=== PATIENT | male | born 1980 | race African-American/Black ===

== ENCOUNTER 2017-11-03 01:46 | Emergency (ER) | payer MEDICAID ==
[~2017-11-03 01:46] MED LIST: AMLODIPINE BESYL5 MG; BACTRIM DS TAB1 EACH PO; BENTYL 20 MG TA20 M1 PO; CARAFATE 11 GM/10 M1 PO; CIPROFLOXACIN500 M1 PO; CYMBALTA20 MG; HYDROXYZINE HCL10 M1; MS CONTIN 60 MG60 M1; NORVASC5 MG PO; ONDANSETRON HCL4 M2 PO; OXYCODON-ACETA1 EAC1 PO; OXYCONTIN10 M1 PO; OXYCONTIN20 M1 PO; PHENADOZ25 MG RC; PRILOSEC 20 MG20 MG PO; PROMS25 WY RECTAL; PROTONIX40 M1 PO; REMERON15 M1; ZANTAC 150MG T150 M1; ZANTAC 150MG T150 MG PO; ZOFRAN ODT4 MG PO; ZOFRAN4 MG PO
== END 2017-11-03 01:55 | disposition left against medical advice (07) ==
LOC: M.ERS 01:46
DX: R11.10 Vomiting, unspecified (principal); I10 Essential (primary) hypertension; F41.9 Anxiety disorder, unspecified; F32.9 Major depressive disorder, single episode, unspecified; Z21 Asymptomatic human immunodeficiency virus [HIV] infection status

== ENCOUNTER 2017-12-10 17:09 | Emergency (ER) | payer MEDICAID ==
[~2017-12-10] VITALS: Ht 182.9 cm; Wt 68.0 kg
[2017-12-10] MEDS ORDERED: PROTONIX40 M1 PO (17:34)
[2017-12-10] MEDS ORDERED: REMERON15 MG PO (17:34)
[2017-12-10] MEDS ORDERED: ANTIVIRAL PO (17:35)
[2017-12-10 18:59] LABS: ABSOLUTE BASOPHILS 0.1 thou/uL (0.0-0.2); ABSOLUTE EOSINOPHILS 0.1 thou/uL (0.0-0.7); ABSOLUTE LYMPHOCYTES 1.4 thou/uL (0.8-5.3); ABSOLUTE MONOCYTES 0.5 thou/uL (0.0-1.2); ABSOLUTE NEUTROPHILS 3.2 thou/uL (1.6-8.1); BASOPHILS 1.6 %; EOSINOPHILS 1.4 %; HEMATOCRIT 36.3 % (42.0-52.0); LYMPHOCYTES 26.4 %; MCH 29.8 pg (26.0-34.0); MCHC 33.1 g/dL (28.0-37.0); MCV 89.9 fL (80.0-100.0); MONOCYTES 10.1 %; MPV 7.3 fl. (7.2-11.1); NUCLEATED RBCS 0 /100WBC; PLATELET COUNT* 151 thou/uL (150-400); POLYS 60.5 %; RBC 4.04 mil/uL (4.50-6.00); RDW-CV 18.1 % (10.5-14.5); WBC 5.3 thou/uL (4.0-11.0)
[2017-12-10 19:07] LABS: CALCIUM 8.8 mg/dL (8.5-10.1); POTASSIUM 3.8 mmol/L (3.5-5.1)
[2017-12-10 19:12] LABS: ALBUMIN 2.8 g/dL (3.4-5.0); TOTAL BILIRUBIN 0.2 mg/dL (<0.1-1.0); TOTAL PROTEIN 6.8 g/dL (6.4-8.2)
[2017-12-10] MEDS ORDERED: ZOFRAN ODT4 MG PO (19:55)
[2017-12-10] MEDS ORDERED: KEFLEX500 M1 PO (19:57)
[2017-12-10 20:20] VITALS: BP 120/89
[2017-12-10] MEDS ORDERED: CIPROFLOXIN HC2.5 M1 OTIC (21:15)
== END 2017-12-10 20:21 | disposition home or self-care (01) ==
LOC: M.ERS 17:09
PROVIDERS: Physician Assistant
DX: K86.1 Other chronic pancreatitis (principal); H10.33 Unspecified acute conjunctivitis, bilateral; F10.20 Alcohol dependence, uncomplicated; K04.7 Periapical abscess without sinus; I10 Essential (primary) hypertension; F32.9 Major depressive disorder, single episode, unspecified; F41.9 Anxiety disorder, unspecified; F17.210 Nicotine dependence, cigarettes, uncomplicated; Z21 Asymptomatic human immunodeficiency virus [HIV] infection status; Z88.8 Allergy status to other drugs, medicaments and biological substances; Z88.6 Allergy status to analgesic agent; Z88.5 Allergy status to narcotic agent; Y90.9 Presence of alcohol in blood, level not specified

== ENCOUNTER 2018-01-15 21:49 | Emergency (ER) | payer MEDICAID ==
[~2018-01-15] VITALS: Ht 182.9 cm; Wt 59.0 kg
[~2018-01-15 21:49] MED LIST changes: +ANTIVIRAL PO; +CIPROFLOXIN HC2.5 M1 OTIC; +KEFLEX500 M1 PO; +REMERON15 MG PO
[2018-01-15] MEDS ORDERED: AMLODIPINE (22:05)
[2018-01-15] MEDS ORDERED: OXYCODONE HCL30 MG (22:05)
[2018-01-15] MEDS ORDERED: STRIBILD TABLE1 EACH PO (22:05)
[2018-01-15] MEDS ORDERED: CREON (22:05)
[2018-01-15 22:14] LABS: URINE BILIRUBIN NEGATIVE (Negative); URINE BLOOD NEGATIVE (Negative); URINE CLARITY CLEAR; URINE COLOR YELLOW; URINE GLUCOSE-RANDOM NEGATIVE (Negative); URINE KETONES NEGATIVE (Negative); URINE LEUKOCYTES-REFLEX TRACE (Negative); URINE NITRITE-REFLEX NEGATIVE (Negative); URINE PROTEIN 1+ (Negative); URINE UROBILINOGEN 0.2 E.U./dl (0.2-1.0)
[2018-01-15 22:23] LABS: MUCUS None Seen strn/LPF (None Seen); SQUAMOUS >10 Many /LPF (0-3)
[2018-01-15 22:24] LABS: CASTS None Seen /LPF (None Seen); CRYSTALS None Seen /LPF (None Seen)
[2018-01-15 22:25] LABS: BACTERIA-REFLEX None Seen /HPF (None Seen); URINE RBC None Seen /HPF (0-2); URINE WBC-REFLEX 0-5 Rare /HPF (0-5)
[2018-01-15 22:26] VITALS: BP 142/99
== END 2018-01-15 22:27 | disposition left against medical advice (07) ==
LOC: M.ERS 21:49
PROVIDERS: Physician Assistant
DX: G89.29 Other chronic pain (principal); R10.13 Epigastric pain; F10.20 Alcohol dependence, uncomplicated; I10 Essential (primary) hypertension; F32.9 Major depressive disorder, single episode, unspecified; F41.9 Anxiety disorder, unspecified; F17.210 Nicotine dependence, cigarettes, uncomplicated; Z88.1 Allergy status to other antibiotic agents; Z88.6 Allergy status to analgesic agent

== ENCOUNTER 2018-02-10 09:32 | Emergency (ER) | payer MEDICAID ==
[~2018-02-10] VITALS: Ht 182.9 cm; Wt 61.2 kg
[~2018-02-10 09:32] MED LIST changes: +AMLODIPINE; +CREON; +OXYCODONE HCL30 MG; +STRIBILD TABLE1 EACH PO
[2018-02-10 11:24] VITALS: BP 122/97
== END 2018-02-10 11:24 | disposition home or self-care (01) ==
LOC: M.ERS 09:32
DX: R10.84 Generalized abdominal pain (principal); I10 Essential (primary) hypertension; F41.9 Anxiety disorder, unspecified; F32.9 Major depressive disorder, single episode, unspecified; F17.210 Nicotine dependence, cigarettes, uncomplicated; Z88.6 Allergy status to analgesic agent; Z88.8 Allergy status to other drugs, medicaments and biological substances

== ENCOUNTER 2018-08-22 04:56 | Inpatient (IN) | payer MEDICAID ==
[2018-08-22] VITALS (23 sets, daily range): BP systolic 75–126; BP diastolic 45–91
[~2018-08-22] VITALS: Ht 182.9 cm; Wt 64.6 kg
[2018-08-22 05:49] LABS: ANION GAP 12 mmol/L (7-16); APTT 21.3 Seconds (25.0-31.3); BUN 8 mg/dL (7-18); CALCIUM 7.6 mg/dL (8.5-10.1); CHLORIDE 104 mmol/L (98-107); CO2 22 mmol/L (21-32); CREATININE 0.8 mg/dL (0.6-1.3); GLUCOSE 94 mg/dL (70-99); POTASSIUM 4.3 mmol/L (3.5-5.1); PROTIME 9.9 Seconds (9.20-11.50); SODIUM 138 mmol/L (136-145)
[2018-08-22 05:54] LABS: ALBUMIN 2.5 g/dL (3.4-5.0); ALKALINE PHOSPHATASE 207 U/L (46-116); SGOT 127 U/L (15-37); SGPT 52 U/L (30-65); TOTAL BILIRUBIN < 0.1 mg/dL (<0.1-1.0); TOTAL PROTEIN 6.9 g/dL (6.4-8.2)
[2018-08-22 05:57] LABS: TROPONIN-I LEVEL 2.92 ng/mL (<0.06)
[2018-08-22 05:58] LABS: MAGNESIUM 2.4 mg/dL (1.8-2.4)
[2018-08-22 06:20] LABS: HYPOCHROMASIA 1+; PLATELET ESTIMATE ADEQUATE; TARGET CELLS Occasional
[2018-08-22 06:21] LABS: ANISOCYTOSIS 1+; POIKILOCYTOSIS 1+
[2018-08-22 06:25] LABS: ABSOLUTE LYMPHOCYTES 1.3 thou/uL (0.8-5.3); ABSOLUTE MONOCYTES 0.2 thou/uL (0.0-1.2); ABSOLUTE NEUTROPHILS 0.9 thou/uL (1.6-8.1); HEMATOCRIT 28.5 % (42.0-52.0); HEMOGLOBIN 9.1 gm/dL (14.0-18.0); MCH 27.1 pg (26.0-34.0); MCV 84.7 fL (80.0-100.0); MPV 8.5 fl. (7.2-11.1); PLATELET COUNT* 224 thou/uL (150-400); RBC 3.37 mil/uL (4.50-6.00); RDW-CV 18.1 % (10.5-14.5); WBC 2.4 thou/uL (4.0-11.0)
[2018-08-22 12:32] LABS: URINE BILIRUBIN NEGATIVE (Negative); URINE BLOOD TRACE (Negative); URINE CLARITY CLEAR; URINE COLOR YELLOW; URINE GLUCOSE-RANDOM NEGATIVE (Negative); URINE KETONES TRACE (Negative); URINE LEUKOCYTES-REFLEX NEGATIVE (Negative); URINE NITRITE-REFLEX NEGATIVE (Negative); URINE PROTEIN 2+ (Negative); URINE SPECIFIC GRAVITY >= 1.030 (1.005-1.030); URINE UROBILINOGEN 0.2 E.U./dl (0.2-1.0)
[2018-08-22 12:40] LABS: AMP/METHAMP Negative (Negative); BARBITURATES Negative (Negative); BENZODIAZEPINES Negative (Negative); COCAINE Negative (Negative); METHADONE Negative (Negative); OPIATES POSITIVE (Negative); PCP POSITIVE (Negative); THC Negative (Negative)
[2018-08-22 12:48] LABS: SQUAMOUS 0-3 Few /LPF (0-3)
[2018-08-22 12:49] LABS: BACTERIA-REFLEX 1-9 Few /HPF (None Seen); CRYSTALS None Seen /LPF (None Seen); HYALINE CASTS 0-3 Few /LPF (None Seen); MUCUS 4-6 Moderate strn/LPF (None Seen); URINE RBC 0-2 Rare /HPF (0-2); URINE WBC-REFLEX 0-5 Rare /HPF (0-5)
--- NOTE | 2018-08-22 13:51 | EKG ---
[place] [address] ELECTROCARDIOGRAM REPORT Name: SHALOM GAR Room: [address] ADM IN .R.#: [id number] Admission: 08/22/18 Attend Phys: Dewayne Velazquez Discharge: Date of : 76 Report #: [id number] THIS REPORT FOR: //name// [facility] ED Test Date: 2018-08-22 Test Time: 05:17:10 Pat Name: SHALOM GAR Department: Room: [facility] Gender: M Garnisher: Lencho DON : 1980 Requested By: Kasia Arvizu Order Number: [id number] MD: David Louise Measurements Intervals [place] Rate: 112 P: 67 FL: 159 QRS: -12 QRSD: 90 T: 104 QT: 323 QTc: 441 Interpretive Statements Sinus tachycardia Borderline low voltage, extremity leads Anteroseptal infarct, old Nonspecific T abnormalities, lateral leads Compared to ECG 09/03/2017 12:46:01 Myocardial infarct finding now present Sinus rhythm no longer present ST (T wave) deviation now present Electronically Signed On 08-22-2018 13:51:43 STEELWORKER by David Louise [email or web address] <ELECTRONICALLY SIGNED> By: David Louise MD, FACC 08/22/18 1351 6 0517 David Louise MD, FACC /EPI
--- NOTE | 2018-08-22 14:27 | NUR ---
SINGLE LUMAN POWER PICC PLACED BY PERCY JUNG RN PER HOSPITAL POLICY. PIV ALSO STARTED. 1315-CALL RECIEVED FROM ICU STATING IV WAS NO LONGER PATENT AND REQUESTION NEW LINE. OVER WIRE EXCHANGE COMPLETED OF SINGLE LUMAN POWER PICC TO DUAL LUMAN POWER PICC PER HOSPITAL POLICY. STAT CHEST X-RAY OBTAINED TO VERIFY TIP [id number]. ON X-RAY TIP NOTED TO STAY IN SUBCLAVIAN AND NOT DROP DOWN INTO SVC. LINE RETRACTED AND ATTEMPT TO READVANCE LINE WITH POWER FLUSH. 2ND CHEST X-RAY SHOWS TIP STILL NOT IN SVC. CALL PLACED TO BAND MAKER AND SPOKE WITH ELAINA. CONNER, STEEL DIE ENGRAVER, IN ICU AND SPOKE WITH HIM. CASE REFERED TO DR. BARRAZA FOR TIP MANIPULATION. [facility] AWARE.
--- NOTE | 2018-08-22 16:58 | NUR ---
PT SLOWLY PROGRESSING TOWARDS GOALS. VSS. AFEBRILE. ALERT AND ORIENTED X4. THROUGHOUT SHIFT PT C/O CONSTANT ABD PAIN. NO BM OR VOMITING THIS SHIFT. PT URINATED WITHOUT DIFFICULTY, NO BLOOD NOTED. PT TOLERATING PO INTAKE. THIS PM PT C/O TREMORS, HEADACHE, AND MILD NAUSEA. STATES HE HAS WITHDRAWN FROM ALCOHOL BEFORE AND HE IS CONCERNED HE IS STARTING TO WITHDRAWL. ATIVAN ADMINISTERED PRN. PT RECEIVED PICC LINE THIS SHIFT DUE TO POOR ACCESS. PT STATES HE HAS HIS HIV MEDICATION AT HOME AND HIS MOTHER WILL BRING IT IF SHE IS ABLE TO COME SEE HIM, FOR NOW HE IS OK TAKING OUR MEDICATION PER PHARMACY. PT DENIES ANY FURTHER QUESTIONS/CONCERNS.
--- NOTE | 2018-08-22 17:45 | NUR ---
RN CALLED REPORT TO LOU BRITTON. PT TX TO 229 WITH PAPER CHART AND BELONGINGS. PT DENIES FURTHER QUESTIONS/CONCERNS.
[2018-08-23] VITALS (27 sets, daily range): BP systolic 83–114; BP diastolic 54–88
--- NOTE | 2018-08-23 06:07 | CON ---
[address] [address] CONSULTATION Name: SHALOM GAR Room: [address] IN M.R.#: [id number] Admission: 08/22/18 Attend Phys: Dewayne Velazquez Discharge: Date of : 76 Report #: [id number] THIS REPORT FOR: //name// CC: RUFINA physician/PCP Consuelo Mckeon DATE OF SERVICE: 08/22/2018 INFECTIOUS DISEASE CONSULTATION: ATTENDING PHYSICIAN: Dr. Mckeon. REASON FOR EVALUATION: HIV positive, admitted with hematemesis associated abdominal pain in the setting of known chronic ethanol abuse. He was seen in the Intensive Care Unit. He is lucid at this point, not hemodynamically unstable, some concern about him being able to afford his medicines. He does state he has been taking his Stribild, perhaps only missing a few days. As far as he is concerned still within the last month, he has undetectable viral load, also a CD count, he believes around 350. It is not clear that he has had significant opportunistic infection as a result of depressed immune system. Evaluation is undergoing in addition to confirming loss of blood via the GI tract. He does have positive troponins and suspected myocardial infarction. Imaging of the abdomen and pelvis showed no evidence of inflammatory masses, ascites, bowel obstruction or other acute process. Urinalysis was generally unremarkable as well. Stool was sent for occult blood. He has now been placed on antimicrobials. ALLERGIES: MORPHINE, ACETAMINOPHEN, IBUPROFEN, FENTANYL, CLONIDINE. CURRENT MEDICINES: Include vitamin, thiamine, hydromorphone, nicotine, pancrelipase, pantoprazole, allopurinol, p.r.n. analgesics and antiemetics. PAST MEDICAL HISTORY: As described above. He is HIV positive, history of pancreatitis, hypertension, depression, anxiety. SOCIAL HISTORY: Smokes a pack and a half a day for the last 15 years. He drinks ethanol on a daily basis with history of delirium tremens. No illicit drug use. FAMILY HISTORY: Noncontributory. REVIEW OF SYSTEMS: As described above, in addition 10-point evaluation was otherwise unremarkable. PHYSICAL EXAMINATION: GENERAL: He appears somewhat chronically ill. He is pleasant, cooperative, [place] [address] CONSULTATION Name: SHALOM GAR Room: [address]#: [id number] Admission: 08/22/18 Attend Phys: Dewayne Velazquez Discharge: Date of : 76 Report #: [id number] undernourished. VITAL SIGNS: Temperature 97, pulse 93, respirations 11, blood pressure 97/66. Weight 142 pounds. SKIN: Warm. He has got several tattoos. He has got plaque-like eruption, most prominent over his back that is not particularly raised. There is no bullous lesions, no ulcers. Really, no drainage. NECK: Supple. No oral lesions. No eye changes. LUNGS: Generally, clear to auscultation. HEART: Regular. Borderline tachycardic. I do not appreciate a murmur. ABDOMEN: Soft, nontender. There are no peritoneal signs. I do not believe there is any organomegaly, specifically hepatic or splenomegaly. EXTREMITIES: Distal lower extremities again dry skin, likely dehydration. GENITOURINARY: Deferred. RECTAL: Deferred. LABORATORY DATA: Initial electrolytes: Sodium 138, potassium 4.3, chloride 104, bicarbonate is 22, anion gap of 12, BUN and creatinine 8 and 0.8, glucose of 94, AST of 127, ALT of 52, albumin of 2.5, total protein 6.9. Estimated GFR 130, ethanol 331. PT 9.9, INR 1.0, lipase of 166. Troponin elevated at 2.92. CBC: White count low at 2.4, H and H 9.1 and 28.5, platelets of 224, actually has a neutrophilia of 900, lymphocyte count is [address] abdomen and pelvis as described above. Lung bases are clear. There is no evidence of pericardial effusion. There is diffuse fatty infiltration of the liver, pancreas consistent with sequelae of chronic pancreatitis, no evidence of acute pancreatitis. ASSESSMENT: 1. Human immunodeficiency virus positive. Sounds as if he has been generally compliant. We will continue to use Stribild at this point. Noted, he may have reasonably a CD4 count and his total lymphocyte count is 1700 which would go against profound T4 lymphocytopenia. Certainly, can exclude opportunistic related infection, although the ethanol seems like the culprit at this point. Secondarily, he has a generalized rash. He states he has utilized spray Tinactin on it before which resolved it. There is a question of an antifungal etiology. We will restart antifungals and go ahead and hold off on any sort of corticosteroid. We will check blood cultures as well as stool studies. <ELECTRONICALLY SIGNED> By: Salvador Chow MD 08/23/18 0607 1432 [id number] Chow MD /nt
[2018-08-23 06:27] LABS: HEMATOCRIT 23.1 % (42.0-52.0); HEMOGLOBIN 7.2 gm/dL (14.0-18.0); MCH 26.8 pg (26.0-34.0); MCHC 31.4 g/dL (28.0-37.0); MCV 85.4 fL (80.0-100.0); MPV 9.1 fl. (7.2-11.1); RBC 2.7 mil/uL (4.50-6.00); RDW-CV 17.8 % (10.5-14.5); WBC 4.3 thou/uL (4.0-11.0)
[2018-08-23 06:47] LABS: ALBUMIN 2.1 g/dL (3.4-5.0); CALCIUM 7.8 mg/dL (8.5-10.1); CREATININE 0.8 mg/dL (0.6-1.3); MAGNESIUM 1.6 mg/dL (1.8-2.4); POTASSIUM 4.2 mmol/L (3.5-5.1); TOTAL BILIRUBIN 0.2 mg/dL (<0.1-1.0); TOTAL PROTEIN 6.2 g/dL (6.4-8.2)
--- NOTE | 2018-08-23 07:00 | NUR ---
AWAKE ALL SHIFT, REQUESTING AND RECEIVED DILAUDID 2MG IVP [id number] FOR C/O ABDOMINAL PAIN, PT VERBALIZED DIALUDID DECREASING PAIN LEVEL USING 1-10 PAIN SCALE FROM 10 TO 6, PT NOTED TO BE IN BED WATCHING TV, NO GAURDING, GRIMACING, OR ABDOMINAL DISTENTION NOTED. EMESIS X1 300CC YELLOW BILE THIS SHIFT, NO BM DUING SHIFT, ATIVAN GIVEN X2 PER REQUEST AND C/O INCREASED ANXIETY, SEEING "SHADOW PEOPLE" AND HEADACHE, ATIVAN EFFECTIVE FOR RELAXATION, NPO SINCE MIDNIGHT FOR EGD TODAY, AFEBRILE, SR/ST TRACING BEAD FLIPPER WITH HR 90'S TO 120'S, USING CALL LIGHT FOR NEEDS AND WANTS, D5NS 100CC/HR INFUSING PER PUMP PER ORDER, CONTINUES ON PROTONIX GTT, DENIES CHEST PAIN OR DISCOMFORT, CALL LIGHT REMAINS IN REACH, BED REMAINS IN LOW AND LOCKED POSITON, HOURLY ROUNDING DONE PER POLICY.
--- NOTE | 2018-08-23 07:31 | 2DMMODE ---
[place] [address] 2 D/M-MODE ECHOCARDIOGRAM Name: SHALOM GAR Room: [address] ADM IN .R.#: [id number] Admission: 08/22/18 Attend Phys: Consuelo Mckeon Discharge: Date of : 76 Date of Service: 08/23/18 0731 Report #: [id number] THIS REPORT FOR: //name// APPROVED REPORT Study performed: 08/22/2018 14:35:46 EXAM: Comprehensive 2D, Doppler, and color-flow Echocardiogram Patient Location: Bedside BSA: 1.81 HR: 92 bpm Other Information Study Quality: Good Indications Non STEMI 2D Dimensions IVSd: 9.22 (7-11mm) LVOT Diam: 24.74 (18-24mm) LVDd: 49.81 mm PWd: 10.00 (7-11mm) Ascending Ao: 35.61 (22-36mm) LVDs: 38.61 (25-40mm) Aortic Root: 35.29 mm Volumes Left Atrial Volume (Systole) LA ESV Index: 22.50 mL/m2 Aortic Valve AoV Peak Case.: 0.74 m/s AO Peak Gr.: 2.21 mmHg LVOT Max P.54 mmHg AO Mean Gr.: 1.39 mmHg LVOT Mean P.79 mmHg LVOT Max V: 0.62 m/s AO V2 VTI: 11.82 cm LVOT Mean V: 0.41 m/s ADRIEL (VTI): 4.40 cm2 LVOT V1 VTI: 10.82 cm Mitral Valve E/A Ratio: 1.25 MV Decel. Time: 234.13 ms MV E Max Case.: 0.63 m/s MV PHT: 67.90 ms MVA (PHT): 3.24 [place]2 [place] [address] 2 D/M-MODE ECHOCARDIOGRAM Name: SHALOM GAR Room: [address] IN [facility]#: [id number] Admission: 08/22/18 Attend Phys: Consuelo Mckeon Discharge: Date of : 76 Date of Service: 08/23/18 0731 Report #: [id number] TDI E/Lateral E': 5.73 E/Medial E': 7.00 Medial E' Case.: 0.09 m/s Lateral E' Case.: 0.11 m/s Pulmonary Valve PV Peak Case.: 0.70 m/s PV Peak Gr.: 1.98 mmHg Tricuspid Valve RAP Estimate: 5.00 mmHg TR Peak Gr.: 18.81 mmHg RVSP: 23.81 mmHg PA Pressure: 23.81 mmHg Left Ventricle The left ventricle is normal size. There is anterior and anteroseptal akinesis. There is normal left ventricular wall thickness. Left ventricular systolic function is moderate to severely decreased. LVEF is 30%. The left ventricular diastolic function is normal. Right Ventricle The right ventricle is normal size. The right ventricular systolic function is normal. Atria The left atrium size is normal. The right atrium size is normal. Aortic Valve The aortic valve is normal in structure. No aortic regurgitation is present. There is no aortic valvular stenosis. Mitral Valve The mitral valve is normal in structure. Mild mitral regurgitation. No evidence of mitral valve stenosis. Tricuspid Valve The tricuspid valve is normal in structure. Mild tricuspid regurgitation. Pulmonic Valve The pulmonary valve is normal in structure. There is no pulmonic valvular regurgitation. Great Vessels The aortic root is normal in size. IVC is [place] [address] 2 D/M-MODE ECHOCARDIOGRAM Name: YURILenchoSHALOM Ilana Room: [address] IN [facility]#: [id number] Admission: 08/22/18 Attend Phys: Consuelo Mckeon Discharge: Date of : 76 Date of Service: 08/23/18 0731 Report #: [id number] collapses >50% with inspiration. Pericardium There is no pericardial effusion. <Conclusion> The left ventricle is normal size. There is normal left ventricular wall thickness. Left ventricular systolic function is moderate to severely decreased. LVEF is 30%. The left ventricular diastolic function is normal. There is anterior and anteroseptal akinesis. Mild mitral regurgitation. Mild tricuspid regurgitation. IVC is normal in size and collapses >50% with inspiration. <ELECTRONICALLY SIGNED> By: Marlo Krishnamurthy MD, FACC 08/23/18730 0 0 Marlo Krishnamurthy MD, FACC /INF
--- NOTE | 2018-08-23 08:22 | CON ---
[address] [address] CONSULTATION Name: SHALOM GAR Room: [address] IN M.R.#: [id number] Admission: 08/22/18 Attend Phys: Dewayne Velazquez Discharge: Date of : 76 Report #: [id number] THIS REPORT FOR: //name// CC: RUFINA physician/PCP Consuelo Mckeon INDICATION: Elevated troponin in the setting of possible upper GI bleed. HISTORY OF PRESENT ILLNESS: The patient is a 37-year-old -Turkish male with history of ETOH abuse and pancreatitis who presented to the hospital with complaints of abdominal pain, nausea and vomiting. He states that he was vomiting blood as well as passing dark stools. He has a history of chronic alcohol use. He complains of some generalized pain focusing mostly on the abdomen. He states he may have had some left arm discomfort. In this setting, he was noted to have an elevated troponin. EKG shows possible recent anteroseptal infarct with persistent ST elevation. He denies any prior history of coronary artery disease. PAST MEDICAL HISTORY: 1. Chronic alcoholism. 2. HIV positive. 3. Tobacco use. 4. History of pancreatitis. 5. Hypertension. 6. Depression. 7. Anxiety. HOME MEDICATIONS: Stribild as directed. ALLERGIES: CLONIDINE, ACETAMINOPHEN, FENTANYL, IBUPROFEN AND MORPHINE. FAMILY HISTORY: Noncontributory. SOCIAL HISTORY: The patient smokes cigarettes and drinks alcohol daily. He denies use of other drugs. REVIEW OF SYSTEMS: Positive for vomiting blood, dark stools, nausea, abdominal pain, otherwise unremarkable. PHYSICAL EXAMINATION: VITAL SIGNS: Blood pressure 113/89, pulse 82. GENERAL: This is a pleasant -Turkish male who does not appear to be in distress. HEENT: Head is normocephalic, atraumatic. Extraocular muscles intact. Mucous membranes are moist. NECK: Shows no jugular venous distension. There are no carotid bruits. CHEST: Reveals [place] [address] CONSULTATION Name: SHALOM GAR Room: [address] IN [facility].#: [id number] Admission: 08/22/18 Attend Phys: Dewayne Velazquez Discharge: Date of : 76 Report #: [id number] CARDIOVASCULAR: Reveals a regular rhythm. I do not appreciate gallop or murmur. ABDOMEN: Reveals diffuse mild tenderness without rebound. Bowel sounds are present. EXTREMITIES: Show no edema. SKIN: Dry. LABORATORY DATA: Reviewed. Sodium 138, potassium 4.3, chloride 104, bicarbonate 22, BUN 8, creatinine 0.8, serum glucose 94, AST 127, lipase 166, total bilirubin less than 0.1, calcium 7.6, magnesium 2.4, alkaline phosphate 207, ALT 52, total protein 6.9, albumin 2.5, EGFR 130. CPK 301. Troponin 2.82. Alcohol level 331. Coags within normal limits. White blood cell count 2.4, hemoglobin 9.1, platelet count 224,000. Hemoccult stool and gastric contents pending. IMPRESSION AND RECOMMENDATIONS: 1. Elevated troponin in the setting of acute illness, likely pancreatitis. The EKG suggests possible recent anterior myocardial infarction. An echocardiogram has been ordered and is pending. At this time, I would hold off on any anticoagulation as there is suspicion of gastrointestinal bleeding, possibly upper gastrointestinal bleeding. Hemoglobin appears stable. Serial troponins and hemoglobins have been ordered. He did receive an aspirin in the Emergency Room. I would not give further aspirin at this time. I would not give metoprolol as he did have a profound episode of hypotension in the Emergency Room as well. He is being gently rehydrated at this time. May need to consider invasive evaluation in the future if this gastrointestinal bleeding issue can be resolved. 2. Pancreatitis per primary physician. 3. ETOH. 4. Hypertension. Blood pressure low normal presently. I would not start any medications at this time. We will follow clinically. <ELECTRONICALLY SIGNED> By: Marlo Krishnamurthy MD, FACC 08/23/1822 1310Marlo Krishnamurthy MD, FACC /nt
--- NOTE | 2018-08-23 17:44 | NUR ---
PT CARE ASSUMED AFTER REPORT. ST ON MONITOR. IVF AND PROTONIX GTT INFUSING. EGD DONE AT BEDSIDE TODAY. 1U PRBC GIVEN FOR HGB 6.7. PT C/O ABD PAIN. REQUESTS PAIN MEDICATION VERY FREQUENTLY BEFORE IT IS DUE. PT TO BE NPO AFTER MIDNIGHT FOR COLONOSCOPY TOMARROW. ALCOHOL WITHDRAWL SCREEN SCORE OF 5. PT TURNS SELF FREQUENTLY IN BED. SLOWLY PROGRESSING TOWARDS GAOLS.
[2018-08-23 18:32] LABS: HEMATOCRIT 23.9 % (42.0-52.0); HEMOGLOBIN 7.6 gm/dL (14.0-18.0)
--- NOTE | 2018-08-23 21:29 | NUR ---
MIRILAX MIXED WITH 36 OUNCES H20 CONSUMED WITHIN 90 MIN, FINISHED AT 2120, DUCOLAX TABS TOATAL DOSE 20MG PO ADMINISTERED, WILL CONTINUE BOWEL PREP ORDERED.
[2018-08-24] VITALS (9 sets, daily range): BP systolic 89–110; BP diastolic 59–82
--- NOTE | 2018-08-24 00:10 | NUR ---
GOLYTELY 20 OUNCES OF TOTAL 36 ONCES CONSUMED, PT REFUSING REST OF ORDERED GOLYTELY AND SECOND DOSE DUCOLAX 20MG PO, STATES FEELING NAUSEATED AND DOES NOT WANT ANYMORE. EDUCATED RATIONALE FOR ORDERED BOWEL PREP, PT CONTINUED TO REFUSE. ZOFRAN 4MG IVP ADMINISTERED PER ORDER FOR NAUSEA.
[2018-08-24 06:05] LABS: ALBUMIN 1.8 g/dL (3.4-5.0); CALCIUM 7.1 mg/dL (8.5-10.1); CREATININE 0.7 mg/dL (0.6-1.3); MAGNESIUM 1.5 mg/dL (1.8-2.4); PREALBUMIN 14.7 mg/dL (18.0-35.7); TOTAL BILIRUBIN 0.4 mg/dL (<0.1-1.0); TOTAL PROTEIN 5.6 g/dL (6.4-8.2)
[2018-08-24 06:19] LABS: HEMOGLOBIN 8.1 gm/dL (14.0-18.0); PLATELET COUNT* 105 thou/uL (150-400)
[2018-08-24 06:21] LABS: MCH 28.3 pg (26.0-34.0); MCHC 32.5 g/dL (28.0-37.0); MPV 8.9 fl. (7.2-11.1); NUCLEATED RBCS 1 /100WBC; RBC 2.88 mil/uL (4.50-6.00); RDW-CV 17.9 % (10.5-14.5)
--- NOTE | 2018-08-24 06:39 | NUR ---
PROGRESSING TOWARDS GOALS, RESTING QUIETLY WITH EYES CLOSED MOST OF NOC, EASILY AROUSABLE TO VERBAL STIMULI, ATIVAN 2MG IVP GIVEN X1 PER REEQUEST AND C/O ANXIETY, ATIVAN EFFECTIVE, CIWA 0 AT THIS TIME, C/O NONPRODUCTIVE COUGH, OXYGEN 2L PER NC, SA02 =>93%, NO BLEEDING NOTED, X1 LIQUID BM THIS SHIFT, COLLECTED ORDERED STOOL AND SENT TO LAB, OCCULT BLOOD NEGATIVE, ZOFRAN 4MG IVP GIVEN X2, ZOFRAN EFFECTIVE FOR NAUSEA, EMESIS YELLOW SPUTUM APROX 25CC NOTED, PT STATES EMESIS CAUSED BY COUGHING, OXYCODONE 5MG PO GIVEN X1 PER REQUEST AND C/O EPIGASTRIC ABDOMINAL PAIN, PER PT OXYCODONE SOMEWHAT HELPFUL, VERBALIZED PAIN DECREASED FROM 10/10 TO 7/10 USING NUMERICAL PAIN SCALE, NPO SINCE MIDNIGHT FOR COLONOSCOPY TODAY, ST TRACING AGENCY DIRECTOR HR ONE-TEENS TO 130'S. BED REMAINS IN LOW AND LOCKED POSITON, USING CALL LIGHT FOR NEEDS.
[2018-08-24 07:57] LABS: ABSOLUTE LYMPHOCYTES 0.8 thou/uL (0.8-5.3); ABSOLUTE MONOCYTES 0.2 thou/uL (0.0-1.2)
[2018-08-24 07:58] LABS: GIANT PLATELETS FEW; LARGE PLATELETS RARE; PLATELET ESTIMATE DECREASED
[2018-08-24 07:59] LABS: ANISOCYTOSIS 1+; HYPOCHROMASIA 3+
[2018-08-24 08:00] LABS: TARGET CELLS Occasional
--- NOTE | 2018-08-24 10:30 | NUR ---
SYSTOLIC BP 89. HR 117. CARDIOLOGY ORDERED FLUID BOLUS. DR FRAZIER NOTIFIED OF BP,HR AND BOLUS ORDERED BY CARDIOLOGY. TELEMETRY STATUS. CARDIOLOGY OKAY WITH PT BEING TELE STATUS WITH BP. PT HAD 1 BM THIS AM. ABOUT 500ML OF LIQUID STOOL. PT NOT CLEAR FOR BOWEL PREP. GI CALLED. RECEIVED ORDER FOR DULCOLAX AND SOAP SUDS ENEMA IF PT NOT CLEAR BY TIME OF COLONOSCOPY. PT C/O OF ABDOMINAL PAIN. PRN PAIN MEDICATION ADMININSTERED PER DEC. PT HAS PRODUCTIVE COUGH.
--- NOTE | 2018-08-24 11:10 | NUR ---
PATIENT ARRIVED TO THE FLOOR AT 1100. PATIENT IN BATHROOM UPON ASSUMING CARE. PATIENT STATES HIS BOWEL MOVEMENT WAS NOT CLEAR, BUT HE FLUSHED BEFORE NURSE COULD VISUALIZE. EDUCATED TO NOT FLUSH NEXT TIME PATIENT GOES TO THE RESTROOM. PATIENT AGREED. PATIENT STATING HE THEW UP MULTIPLE TIMES THIS MORNING, NURSE IN ICU REPORTS NOT SEEING THAT. EDUCATED ON THE IMPORTANCE OF FINISHING HIS BOWEL PREP OR SOAP SUDS ENEMA MAY BE NEEDED. PATIENT AWARE. WANTS LIGHTS IN ROOM OFF AND TO REST.
--- NOTE | 2018-08-24 12:27 | NUR ---
PATIENT LEFT THE FLOOR AT 1215 TO PACU UNTIL PROCEDURE. PACU AWARE PATIENT IS NOT CLEAR YET.
--- NOTE | 2018-08-24 17:46 | NUR ---
SINCE RETURNING FROM EGD, PATIENT MORE APPRORPRIATE. STILL COMPLAINS OF PAIN ALL OVER FROM 7-10 AND NAUSEA, BUT MORE CALM WITH MEDICATION ADMINISTRATION. NO EPISODES OF VOMITING NOTED. PATIENT NOTED NO BLOOD IN STOOL. MAGNESIUM REPLACED PER PROTOCOL. PATIENT TRACING NSR ON FILER AND SANDER. GIOVANNI PICC LINE REMAINS IN PLACE WITH BANANA BAG INFUSING AT THIS TIME. DENIES FURTHER CONCERNS FOR NURSING STAFF AT THIS TIME.
[2018-08-25 00:09] VITALS: BP 100/70
[2018-08-25 02:06] LABS: HEPATITIS B SURFACE AG Negative (Negative)
[2018-08-25 04:56] LABS: HEMOGLOBIN 7.6 gm/dL (14.0-18.0); MCHC 31.8 g/dL (28.0-37.0)
[2018-08-25 04:58] LABS: MCV 88.1 fL (80.0-100.0); MPV 9.7 fl. (7.2-11.1); NUCLEATED RBCS 2 /100WBC; PLATELET COUNT* 82 thou/uL (150-400); RBC 2.72 mil/uL (4.50-6.00); RDW-CV 17.5 % (10.5-14.5); WBC 3.3 thou/uL (4.0-11.0)
[2018-08-25 05:08] LABS: ALBUMIN 1.5 g/dL (3.4-5.0); CALCIUM 6.8 mg/dL (8.5-10.1); CREATININE 0.8 mg/dL (0.6-1.3); POTASSIUM 3.5 mmol/L (3.5-5.1); TOTAL BILIRUBIN 0.3 mg/dL (<0.1-1.0)
[2018-08-25 05:24] VITALS: BP 91/56
--- NOTE | 2018-08-25 06:02 | NUR ---
ASSUMED CARE OF PT AFTER REPORT AT 1930. PT A&OX4. VSS. PHYSICAL ASSESSMENT COMPLETED AND CHARTED. PT ON RA WITH 100% O2 SAT. PT TRACING ST ON TELE. PT PICC LINE TO RIGHT UPPER ARM PATENT & INTACT. PT UP ADLIB TO RESTROOM. PT COMPLAINED OF ABDOMINAL PAIN WITH PAIN SCALE OF 10/10 & ALSO REQUESTED FOR ABDI-DR EDMONDS INFORMED WITH NEW ORDER. CALL LIGHT WITHIN REACH. BED IN LOW POSITION.
--- NOTE | 2018-08-25 08:00 | NUR ---
ASSUMED CARE OF PT AT 0730. PT RESTING IN BED. PT A&0X4, COMPLAINS OF PAIN TO ABDOMEN AND STATES PAIN MEDICATION IS NOT RELIEVING HIS PAIN AND HE WANTS TO TALK TO THE PHYSICIAN REGARDING INCREASE IN PAIN MEDS OR GOING HOME. DR FRAZIER NOTIFIED. PT TRACING ST ON THE MANAGER HUMAN RESOURCES. ON RA SAT UPPER 90'S. DENIES ANY SHORTNESS OF BREATH. PT UP AD RODRIGO IN ROOM. IVF. PT GOAL FOR TODAY IS PAIN MGMT, MONITOR HGB, REMAIN FREE FROM BLOODY STOOLS/EMESIS AND MONITOR CIWAS. AM ASSESSMENT CHARTED. MEDICATIONS PER DEC. PT REPOSITIONS SELF. HOURLY ROUNDING OBSERVED.BED IN LOW POSITION. CALL LIGHT WITHIN REACH. WILL CONTINUE PLAN OF CARE.
[2018-08-25 08:10] VITALS: BP 92/65
[2018-08-25 08:56] LABS: ABSOLUTE LYMPHOCYTES 0.9 thou/uL (0.8-5.3); ABSOLUTE MONOCYTES 0.1 thou/uL (0.0-1.2); ABSOLUTE NEUTROPHILS 2.4 thou/uL (1.6-8.1)
[2018-08-25 08:57] LABS: PLATELET ESTIMATE DECREASED
[2018-08-25 08:58] LABS: HYPOCHROMASIA 3+; MICROCYTES 2+; TARGET CELLS 2+
[2018-08-25 08:59] LABS: TEARDROPS Occasional
[2018-08-25 09:00] LABS: ANISOCYTOSIS 2+
--- NOTE | 2018-08-28 16:10 | PROC ---
[address] [address] PROCEDURE REPORT Name: CONGSHALOM Ilana Room: [address] IN M.R.#: [id number] Admission: 08/22/18 Attend Phys: Dewayne Velazquez Discharge: 08/25/18 Date of : 76 Report #: [id number] THIS REPORT FOR: //name// CC: FAM physician/PCP Marlo Mckeon MD DATE OF SERVICE: 08/24/2018 REFERRING PHYSICIAN: Consuelo Mckeon MD PRIMARY CARE PHYSICIAN: The patient has no primary care provider. PROCEDURE PERFORMED: Colonoscopy with terminal ileoscopy. SEDATION USED: Monitored anesthesia care with propofol. SPECIMEN RETRIEVED: None. INDICATIONS: The patient is a 37-year-old male with underlying coronary artery disease, chronic calcific alcoholic pancreatitis, HIV infection and polysubstance abuse, who underwent upper endoscopy yesterday to evaluate for source of iron deficiency anemia. His upper endoscopy was essentially unrevealing for source of the same. He presents today for colonoscopy to evaluate for source of his iron deficiency anemia. The patient did have some overt hematochezia. He presents today for a colonoscopy. See consultation dictated by Dr. Ng and my EGD report for details. PHYSICAL EXAMINATION: GENERAL: Revealed ill-appearing 37-year-old gentleman who appears much older than stated age. CARDIOPULMONARY: Revealed a regular rate and rhythm. His lungs were clear. ABDOMEN: Soft, diffusely tender. No rebound or guarding noted. LABORATORY TESTS: From today revealed white count of 5.3, hemoglobin ____, AST 136, ALT 52, his albumin is 120. DESCRIPTION OF PROCEDURE: An informed consent was obtained from the patient including the nature, risks, benefits and alternatives described. The patient was placed in the left lateral decubitus position with oximetry, blood pressure and cardiac monitoring. IV sedation was titrated with medication to effect. Anal inspection and digital rectal examination revealed some [place] [address] PROCEDURE REPORT Name: SHALOM GAR Room: [address] IN ..#: [id number] Admission: 08/22/18 Attend Phys: Dewayne Velazquez Discharge: 08/25/18 Date of : 76 Report #: [id number] The Abacastn video colonoscope was then advanced under direct vision to the level of the cecum, which was identified by the ileocecal valve and the appendiceal orifice. The cecum, ascending, transverse, descending and sigmoid colon were then circumferentially inspected in a well-prepped colon. I found no evidence for any colitis, polyps, tumors, cancers, diverticular changes, or any other abnormalities. The patient had some internal and external hemorrhoids, but predominantly mostly external. Prior to pulling the scope, the ileocecal valve was traversed and the terminal ileum was evaluated and found to be normal. The remainder of the colon to the level of the terminal ileum was normal. There was no blood to the colon. Scope was withdrawn. The patient was sent to recovery room in stable condition. IMPRESSION: 1. Moderate internal and external hemorrhoids -- no therapy rendered at this time. 2. Otherwise, normal colonoscopy and terminal ileoscopy. 3. Iron deficiency anemia of uncertain etiology. RECOMMENDATIONS: 1. We will allow the patient go ahead and resume oral intake. 2. We need to begin oral iron supplementation for his iron-deficiency anemia. 3. We need to schedule the patient for small bowel capsule study as an outpatient to evaluate the remainder of his GI tract for source of chronic blood loss. This will be arranged through our office. 4. If he has any recurrent rectal bleeding, he will need to be seen by either general surgeon or colorectal surgeon for possible surgical intervention for the same. 5. Okay to proceed with a cardiovascular workup for his recent non-STEMI. I have discussed these findings with the patient in the recovery area. ADDENDUM: The patient continues to have problems with recurrent nausea and vomiting. I will add a scopolamine patch and write for him to undergo a 4-hour gastric emptying scan on Sunday. <ELECTRONICALLY SIGNED> By: Miguel Angel Villagomez DO 08/28/18 1610 0707 [id number] Angel Villagomez DO /nt
--- NOTE | 2018-08-28 16:10 | PROC ---
[address] [address] PROCEDURE REPORT Name: SHALOM GAR Room: [address] IN .R.#: [id number] Admission: 08/22/18 Attend Phys: Dewayne Velazquez Discharge: 08/25/18 Date of : 76 Report #: [id number] THIS REPORT FOR: //name// CC: FAM physician/PCP Consuelo Mckeon MD DATE OF SERVICE: 08/23/2018 REFERRING PHYSICIAN: Consuelo Mckeon MD PROCEDURE PERFORMED: Esophagogastroduodenoscopy. SEDATION USED: Monitored anesthesia care with propofol. SPECIMEN RETRIEVED: None. INDICATIONS: The patient is a 37-year-old male with history of chronic alcoholic pancreatitis and hepatitis C with polysubstance abuse who was admitted to the hospital with severe anemia with associated hematemesis and hematochezia by his report. He was seen in consultation by our associate, Dr. Ng, and scheduled for today's examination. See his consultation for further details. PHYSICAL EXAMINATION: GENERAL: Revealed ill appearing 37-year-old male who is awake and alert. He appears older than stated age. CARDIOPULMONARY: Revealed a regular rate and rhythm. He was tachycardic. His lungs were clear. ABDOMEN: Soft, diffusely tender. No rebound or guarding noted. LABORATORY TESTS: Revealed a white count of 4.3, hemoglobin 7.2, platelet count 158,000. His MCV is 85.4 and RDW 17.8. His INR is 1.0. Sodium 139, potassium 4.2, chloride 106, bicarbonate is 24, BUN 7, creatinine 0.8. His total bilirubin is 0.2, alkaline phosphatase is 227, AST is 119, ALT is 55. His albumin is only 2.1. Troponins have been elevated as well. His drug screen is positive for opiates and PCP. His alcohol level on admission was 331. His iron saturation is 3% and ferritin is 19, B12 level 765 and folate is 8.3, which is on the low side. C-reactive protein is 40 and his C. diff toxin assay is negative. His CD4 count is 533. He is HIV positive. By comparison, his hemoglobin back in November of this year was 12.0. CT scan of the abdomen performed on 08/22 was reviewed and revealed evidence for chronic calcific alcoholic pancreatitis without evidence for any other issues. He has diffuse fatty infiltration of the liver. [place] [address] PROCEDURE REPORT Name: YURILenchoSHALOM Preciado Room: [address]#: [id number] Admission: 08/22/18 Attend Phys: Dewayne Velazquez Discharge: 08/25/18 Date of : 76 Report #: [id number] DESCRIPTION OF PROCEDURE: After informed consent and once the patient was adequately sedated, Olympus video upper scope was advanced under direct vision into the esophagus, which appeared completely normal. There was no esophagitis, rings, webs, strictures. Stomach was entered, insufflated and examined in its entirety and revealed some mild pyloric channel erythema, but there was no evidence for any ulceration. The stomach appeared to be pale secondary to his anemia. There was no blood noted within the upper GI tract. The pylorus widely patent revealing a normal duodenal bulb. Second portion of the duodenum appeared normal as well. Retroflex examination showed normal appearing cardia and fundus. Scope was withdrawn. The patient was sent to the recovery room in stable condition. IMPRESSION: 1. Mild pyloric channel erythema. 2. Pale appearance to the stomach secondary to his anemia. 3. Otherwise, normal upper endoscopy. RECOMMENDATIONS: 1. Okay at this point in time to discontinue the patient's Protonix drip. 2. We will give the patient bowel preparation and proceed with full colonoscopy tomorrow. We will need to look at his colon. 3. It will be okay for him to begin on any anticoagulants for his suspected coronary artery disease due to chronic iron deficiency anemia with associated hematochezia. I have discussed the plans with the patient as well. He is agreeable to the same. The patient has no primary care provider. <ELECTRONICALLY SIGNED> By: Miguel Angel Villagomez DO 08/28/18 1610 0703 [id number] Angel Villagomez DO /nt
--- NOTE | 2018-09-03 12:30 | CON ---
[address] [address] CONSULTATION Name: SHALOM GAR Room: [address] IN M.R.#: [id number] Admission: 08/22/18 Attend Phys: Dewayne Velazquez Discharge: 08/25/18 Date of : 76 Report #: [id number] THIS REPORT FOR: //name// CC: RUFINA physician/PCP Consuelo Mckeon HISTORY OF PRESENT ILLNESS: This is a 37-year-old male with history of drug abuse, who is presenting with hematochezia and hematemesis. The patient reports he has had these symptoms on and off for the last one month. He reports his last episode of hematemesis was large in volume compared to his previous episodes, which prompted this visit to the hospital. The patient reports epigastric abdominal pain associated with nausea, vomiting and intermittent episodes of bright red blood per rectum. The patient reports it is usually blood-tinged vomitus, but this last time, he noticed some valdemar blood in his emesis. The patient denies any reflux symptoms, difficulty swallowing, diarrhea, fevers or chills. PAST MEDICAL HISTORY: Coronary artery disease, hypertension, drug abuse. PAST SURGICAL HISTORY: No significant surgical history. FAMILY HISTORY: No history of colorectal cancer. SOCIAL HISTORY: The patient does smoke cigarettes every day, consumes alcohol on a regular basis. The patient reports his last recreational drug use was more than 3 months back, but his UDS is positive for opiates and PCP. REVIEW OF SYSTEMS: A comprehensive 10-point review of systems was negative except what is mentioned here. PHYSICAL EXAMINATION: VITAL SIGNS: Temperature 36.0, pulse rate 107, respirations 15, blood pressure 96/58, pulse ox 98-100% on room air. GENERAL: The patient is alert, awake, oriented x 3. HEENT: Pupils are equal, round, reactive to light and accommodation. Mucous membranes are moist. There is no congestion. LUNGS: Clear to auscultation bilaterally. HEART: Rate and rhythm regular, S1, S2 present. EXTREMITIES: Warm, well perfused. There is no edema. NEUROLOGIC: No focal neurological deficit. LABORATORY DATA: Hemoglobin 9.1, hematocrit 28.5, WBC count 2.4, platelet count 224. Sodium 138, potassium 4.3, chloride 104, bicarbonate 22, BUN 8, creatinine 0.8. INR 1. UDS positive for opiates and PCP. Abdomen and pelvis CT demonstrates sequelae of chronic pancreatitis without evidence of acute pancreatitis, [place] [address] CONSULTATION Name: SHALOM GAR Room: [address]#: [id number] Admission: 08/22/18 Attend Phys: Dewayne Velazquez Discharge: 08/25/18 Date of : 76 Report #: [id number] ASSESSMENT AND PLAN: This is a very pleasant 37-year-old male with history of alcohol abuse and drug use, presenting with multiple episodes of nausea and vomiting along with an episode of hematemesis. We would recommend upper GI endoscopy to evaluate source of the upper GI bleeding. Place the patient on Protonix 40 mg b.i.d. Further recommendations will be based on esophagogastroduodenoscopy. <ELECTRONICALLY SIGNED> By: Saeid Ng MD 09/03/18 1230 2300 [id number] Ng MD /nt
== END 2018-08-25 09:40 | disposition left against medical advice (07) | DRG 377 ==
LOC: M.ERS 04:56 → M.TBA-ER 06:28 → M.ICU 06:28 → M.2W 08-24 10:52
PROVIDERS: Internal Medicine; Internal Medicine Gastroenterology; Personal Emergency Response Attendant; Specialist; ADMIT Internal Medicine
PROC: 02HV33Z Insertion of Infusion Device into Superior Vena Cava, Percutaneous Approach (ICD-10-PCS; principal; 2018-08-22)
PROC: 0DJ08ZZ Inspection of Upper Intestinal Tract, Via Natural or Artificial Opening Endoscopic (ICD-10-PCS; 2018-08-23)
PROC: 30233N1 Transfusion of Nonautologous Red Blood Cells into Peripheral Vein, Percutaneous Approach (ICD-10-PCS; 2018-08-23)
PROC: 0DJD8ZZ Inspection of Lower Intestinal Tract, Via Natural or Artificial Opening Endoscopic (ICD-10-PCS; 2018-08-24)
DX: K92.2 Gastrointestinal hemorrhage, unspecified (principal); G92 Toxic encephalopathy; I21.4 Non-ST elevation (NSTEMI) myocardial infarction; K86.1 Other chronic pancreatitis; D62 Acute posthemorrhagic anemia; I10 Essential (primary) hypertension; F32.9 Major depressive disorder, single episode, unspecified; F41.9 Anxiety disorder, unspecified; F17.210 Nicotine dependence, cigarettes, uncomplicated; I25.10 Atherosclerotic heart disease of native coronary artery without angina pectoris; K64.8 Other hemorrhoids; K64.4 Residual hemorrhoidal skin tags; F10.129 Alcohol abuse with intoxication, unspecified; R21 Rash and other nonspecific skin eruption; F19.90 Other psychoactive substance use, unspecified, uncomplicated; E53.8 Deficiency of other specified B group vitamins; K52.9 Noninfective gastroenteritis and colitis, unspecified; Z53.21 Procedure and treatment not carried out due to patient leaving prior to being seen by health care provider; Z88.6 Allergy status to analgesic agent; Z88.8 Allergy status to other drugs, medicaments and biological substances; Z91.19 Patient's noncompliance with other medical treatment and regimen

== ENCOUNTER 2018-08-25 20:15 | Inpatient (IN) | payer MEDICAID ==
[~2018-08-25] VITALS: Ht 182.9 cm; Wt 158.8 kg
--- NOTE | ~2018-08-25 | EKG ---
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
[2018-08-25 20:45] VITALS: BP 84/59
[2018-08-25 21:40] LABS: CALCIUM 7.3 mg/dL (8.5-10.1); CREATININE 0.6 mg/dL (0.6-1.3); POTASSIUM 3.4 mmol/L (3.5-5.1)
[2018-08-25 21:44] LABS: ALBUMIN 1.8 g/dL (3.4-5.0); TOTAL BILIRUBIN 0.2 mg/dL (<0.1-1.0); TOTAL PROTEIN 5.6 g/dL (6.4-8.2)
[2018-08-25 22:06] LABS: RBC 2.91 mil/uL (4.50-6.00); WBC 3.8 thou/uL (4.0-11.0)
--- NOTE | 2018-08-25 22:06 | NUR ---
MULTIPLE ATTEMPTS TO ESTABLISH IV ACCESS UNSUCCESSFULL, DR MORTENSEN ESTABLISHED IV ACCESS NSING SONOGRAM LEFT AC.
[2018-08-25 22:08] LABS: HEMATOCRIT 25.8 % (42.0-52.0); HEMOGLOBIN 8.3 gm/dL (14.0-18.0); MCH 28.6 pg (26.0-34.0); MCHC 32.3 g/dL (28.0-37.0); MCV 88.6 fL (80.0-100.0); MPV 9.5 fl. (7.2-11.1); NUCLEATED RBCS 1 /100WBC; PLATELET COUNT* 84 thou/uL (150-400); RDW-CV 17.8 % (10.5-14.5)
[2018-08-25 23:02] LABS: ABSOLUTE LYMPHOCYTES 1.4 thou/uL (0.8-5.3); ABSOLUTE MONOCYTES 0.1 thou/uL (0.0-1.2); ABSOLUTE NEUTROPHILS 2.3 thou/uL (1.6-8.1); ANISOCYTOSIS 1+; PLATELET ESTIMATE DECREASED
[2018-08-25 23:30] VITALS: BP 117/85
--- NOTE | 2018-08-25 23:44 | NUR ---
PATIENT FREQUENTLY REQUESTING PAIN MEDICATION. DR MORTENSEN ORDERD FENTANYL FOR PATIENT. NOTED FENTANYL WAS LISTED ON PATIENT ALLERGY LIST. PATIENT STATES HE DOES NOT HAVE AN ALLERGY TO FENTANYL AND CAN TAKE IT.
[2018-08-26 00:09] VITALS: BP 117/85
[2018-08-26 00:33] LABS: URINE BILIRUBIN NEGATIVE (Negative); URINE BLOOD NEGATIVE (Negative); URINE CLARITY CLEAR; URINE COLOR YELLOW; URINE GLUCOSE-RANDOM NEGATIVE (Negative); URINE KETONES NEGATIVE (Negative); URINE LEUKOCYTES-REFLEX NEGATIVE (Negative); URINE NITRITE-REFLEX NEGATIVE (Negative); URINE PROTEIN NEGATIVE (Negative); URINE SPECIFIC GRAVITY <= 1.005 (1.005-1.030); URINE UROBILINOGEN 0.2 E.U./dl (0.2-1.0)
[2018-08-26 00:37] LABS: AMP/METHAMP Negative (Negative); BARBITURATES Negative (Negative); BENZODIAZEPINES Negative (Negative); COCAINE Negative (Negative); METHADONE Negative (Negative); OPIATES POSITIVE (Negative); PCP Negative (Negative); THC Negative (Negative)
--- NOTE | 2018-08-26 02:30 | NUR ---
37 Y/O MALE ADMITTED TO TELEMETRYWITH AN ADMITTING DIAGNOSIS OF HYPOTENSION, N/V. PT WAS ADMITTED TO THIS UNIT FOR SEVERAL DAYS AND CHOSE TO LEAVE AMA 11 AM. PT REPORTED THAT HE WENT HOME AND HAD 3 BEERS, PT DENIES EATING ANYTHING AT HOME BUT REPORTS N/V SINCE HE LEFT THE HOSPITAL. PT REPORTS 10 PAIN IN ABDOMEN. PT REQUESTED BROTH AND HAS BEEN ABLE TO KEEP THIS DOWN WELL CL. TRACING ST ON MONITOR. IVF INFUSING ORDERED. NEW ORDER FOR PRN PAIN MEDICATION RECEIVED. PT HAS HX OF HIV, ALCOHOLISM, ANXIETY, DEPRESSION, HTN, PANCREATITIS. CLWR. PT DENIES ANY FURTHER NEEDS AT THIS TIME.
[2018-08-26 04:32] VITALS: BP 113/91
--- NOTE | 2018-08-26 05:51 | NUR ---
PT CONTINUES TO C/O 7-07/24 ABDOMIANL PAIN. PT REPORTS 2 LOOSE STOOLS THIS SHIFT, DENIES BLOOD IN STOOLS OR URINE. IVF INFUSING ORDERED. PT DENIES N/V AND HAS TOLERATED CLD WELL. CLWR.
[2018-08-26 06:09] LABS: ALBUMIN 1.9 g/dL (3.4-5.0); CALCIUM 7.2 mg/dL (8.5-10.1); CREATININE 0.7 mg/dL (0.6-1.3); POTASSIUM 3.5 mmol/L (3.5-5.1); TOTAL BILIRUBIN 0.2 mg/dL (<0.1-1.0); TOTAL PROTEIN 6.2 g/dL (6.4-8.2)
[2018-08-26 08:45] VITALS: BP 103/73
--- NOTE | 2018-08-26 08:45 | NUR ---
ASSUMED PT. CARE AND RECEIVED REPORT AT 0730. PT A/OX4, VSS, MONITOR ON TRACING ST. PT. C/O PAIN 9.5/10 IN ABD. AND ALL OVER. ON RA @ 99%. FULL ASSESSMENT COMPLETED, REFER TO CHARTING. CALL LIGHT IN REACH, WILL CONTINUE WITH PLAN OF CARE.
--- NOTE | 2018-08-26 10:00 | NUR ---
PT. WITH MULTIPLE COMPLAINTS OF NAUSEA/PAIN/ANXIETY. DR. FRAZIER ON FLOOR WITH ORDERS GIVEN FOR IV MEDS FOR SET AMOUNT OF DOSES. RECONSULT FOR CARDIOLOGY DUE TO ELEVATED TROP AT LAST VISIT, GI CLEARED FOR PROCEDURE AT LAST VISIT WELL.
[2018-08-26 11:34] VITALS: BP 100/70
--- NOTE | 2018-08-26 12:36 | NUR ---
DR. FRAZIER NOTIFIED OF UNABLE TO DRAW LABS X3 STICKS. VERBALIZED PT. NEEDS LABS, PUBLIC RELATIONS PROFESSIONAL FELIPA NOTIFIED FOR MIDLINE PLACEMENT POSSIBILITIES. IF UNABLE TO GET LINE DR. FRAZIER WANTS ARTERIAL DRAW FOR LABS.
--- NOTE | 2018-08-26 15:54 | NUR ---
MET WITH PT TO DISCUSS HOME SITUATION/DC PLANNING. PT LIVES WITH HIS MOTHER, 2 SISTERS AND THEIR SONS. HE STATES HE IS INDEPENDENT AND USES NO EQUIPMENT. ADMITTED WITH ELEVATED ETOH LEVEL, DISCUSSED ETOH REHAB OPTIONS, PT STATED 'I'VE BEEN IN [place] EVERYWHERE' HE WAS WILLING TO TAKE INFO AND CONSIDER. PT STATES HE FOLLOWS WITH A DR AT [facility] [place]. WILL FOLLOW
[2018-08-26 16:18] LABS: HEMATOCRIT 23.3 % (42.0-52.0); HEMOGLOBIN 7.4 gm/dL (14.0-18.0); MCH 28.1 pg (26.0-34.0); MCHC 31.5 g/dL (28.0-37.0); MPV 9.3 fl. (7.2-11.1); RBC 2.62 mil/uL (4.50-6.00); RDW-CV 17.9 % (10.5-14.5); WBC 3.7 thou/uL (4.0-11.0)
[2018-08-26 16:58] VITALS: BP 96/66
[2018-08-26 19:00] VITALS: BP 99/72
--- NOTE | 2018-08-26 19:21 | NUR ---
PT. WITH MIDLINE PLACED TODAY, TOLERATED WELL WITH GOOD BLOOD RETURN AT THIS TIME. NAUSEA AND PAIN WELL CONTROLLED WITH IV PAIN MED TODAY. IV ATIVAN GIVEN FOR ANXIETY, PT. DID CALM AFTER GIVING. PT. DID ATTEMPT TO GO DOWN ELEVATOR X 1 TODAY, REMINDED PT. THAT POLICY IS FOR HIM TO STAY ON UNIT WITH MONITOR ON. NICOTINE PATCH OBTAINED FOR PT. COMFORT. HOURLY ROUNDING COMPLETED THROUGH OUT THE DAY FOR PT. SAFETY.
[2018-08-27 00:30] VITALS: BP 112/93
[2018-08-27 02:10] LABS: HEPATITIS B SURFACE AG Negative (Negative)
--- NOTE | 2018-08-27 02:21 | NUR ---
PT ASSESSED AT START OF SHIFT. PT CONTINUES TO C/O CONSTANT ABDOMINAL PAIN REQUESTING PRN PAIN AND ANXIETY MEDICATION FREQUENTLY. PT IRRITABLE, PACING THE FLOOR AT TIMES. ST ON MONITOR. IVF INFUSING ORDERED. PT PUT NPO AFTER MN FOR CARDIOLOGY TESTING IN THE AM. NO NEW CONCERNS AT THIS TIME. CLWR.
[2018-08-27 03:50] VITALS: BP 109/77
[2018-08-27 05:37] LABS: MPV 10.9 fl. (7.2-11.1); NUCLEATED RBCS 1 /100WBC; WBC 4.1 thou/uL (4.0-11.0)
[2018-08-27 05:39] LABS: HEMATOCRIT 22.5 % (42.0-52.0); HEMOGLOBIN 7.2 gm/dL (14.0-18.0); MCHC 32.2 g/dL (28.0-37.0); PLATELET COUNT* 108 thou/uL (150-400)
[2018-08-27 05:49] LABS: CALCIUM 6.9 mg/dL (8.5-10.1); CREATININE 0.9 mg/dL (0.6-1.3)
[2018-08-27 05:51] LABS: POTASSIUM 4.6 mmol/L (3.5-5.1)
--- NOTE | 2018-08-27 06:08 | NUR ---
PT HAS BEEN DEMANDING AND IRRITABLE T/O THIS SHIFT. PT CONTINUES TO DEMAND PAIN MEDICATIONS AND IV ANXIETY MEDICATIONS REGARDLESS OF BEING EDUCATED ON WHEN HE CAN HAVE THEM PER THE PHYSICIAN ORDER. PT REPORTS VERY LITTLE TO NO PAIN RELIEF, C/O ABDOMINAL PAIN. PT REQUESTED ZOFRAN BUT ONLY WANTED IT IF HE COULD HAVE IV ATIVAN AT THAT SAME TIME. PT HAS NOT HAD ANY VOMITING AND HAS BEEN UP ADLIB IN ROOM.
[2018-08-27 06:42] LABS: ABSOLUTE LYMPHOCYTES 1.4 thou/uL (0.8-5.3); ABSOLUTE MONOCYTES 0.3 thou/uL (0.0-1.2); ABSOLUTE NEUTROPHILS 2.4 thou/uL (1.6-8.1); HYPOCHROMASIA 1+; PLATELET ESTIMATE DECREASED
[2018-08-27 06:43] LABS: ANISOCYTOSIS 1+; OVALOCYTES Occasional; POIKILOCYTOSIS 1+; TARGET CELLS Occasional
[2018-08-27 08:00] VITALS: BP 105/76
--- NOTE | 2018-08-27 08:19 | NUR ---
ASSUMED PT. CARE AND RECEIVED REPORT AT 0730. PT. A/OX4, VSS, MONITOR ON TRACING ST. PT. REPORTS PAIN 10/10 IN ABD. PT. ASKING MULTIPLE TIMES ABOUT TIME HE CAN HAVE DILAUDID AGAIN. ALSO STATES CONCERN THAT HIS PENIS IS EDEMATOUS THIS MORNING, PER PT. HE IS VERY CONCERNED ABOUT THE AMOUNT OF SWELLING HE HAS. VISUAL INSPECTION NOTED MINOR SWELLING. FULL ASSESSMENT COMPLETED, REFER TO CHARTING. NPO FOR STRESS TEST TODAY. CALL LIGHT IN REACH, WILL CONTINUE WITH PLAN OF CARE.
--- NOTE | 2018-08-27 09:45 | CON ---
[address] [address] CONSULTATION Name: SHALOM GAR Room: [address] IN .R.#: [id number] Admission: 08/25/18 Attend Phys: Dani Lyle MD Discharge: Date of : 76 Report #: [id number] THIS REPORT FOR: //name// CC: Dani Lyle [facility] physician/PCP DATE OF SERVICE: 08/26/2018 REASON FOR CONSULTATION: Pancytopenia. HISTORY OF PRESENT ILLNESS: A 37-year-old male who has been previously noncompliant, had a polysubstance abuse, alcohol intoxication and chronic pancreatitis, has been evaluated because of pancytopenia. He reviewed his previous records, his white count has been back in 2017 around 3.0. His hemoglobin has been also low; however, he was admitted last month because of GI bleed. His platelet count most recently dropped from 158 to 92. The patient reported that he has been on active treatment for HIV; however, his doctor just moved to [place]. The patient denies any active cancer. The patient has been on treatment for the HAART therapy, which was Stribild; however, I do not have any records to confirm. The patient has been admitted by the hospitalist service and started on pain control. The patient has been seen today. He is feeling fairly well. REVIEW OF SYSTEMS: All systems reviewed, it was negative except abdominal pain. PAST MEDICAL HISTORY: Pancreatitis, hypertension, HIV, depression, and alcoholism. MEDICATIONS: Per admission list. ALLERGIES: MORPHINE, ACETAMINOPHEN, IBUPROFEN, FENTANYL AND CLONIDINE. SOCIAL HISTORY: He is an active smoker, 1 pack per day for more than 20 years. He drinks 6 packs every day also for many years. FAMILY HISTORY: Noncontributory. PHYSICAL EXAMINATION: VITAL SIGNS: Today, temperature 37.6, pulse is 136, respirations 22, blood pressure is 100/70, SpO2 was 100% on room air. GENERAL: The patient was lying in bed. He was not in acute distress. LUNGS: Clear to auscultations bilaterally. HEART: Heart was tachycardic but regular. S1, S2 within normal limits. ABDOMEN: The patient had generalized tenderness. EXTREMITIES: No edema, no cyanosis, [place] [address] CONSULTATION Name: JAZMINESHALOM HINES Room: [address]#: [id number] Admission: 08/25/18 Attend Phys: Dani Lyle MD Discharge: Date of : 76 Report #: [id number] LABORATORY DATA: WBC 3.7, hemoglobin 7.4, platelets 92. Creatinine 0.7, calcium 7.2, AST 161, ALT 69. Vitamin B12 765, folate is 8.3. Hepatitis panel came back negative. IMAGING: From his previous admission on 08/22/2018, he has a diffuse fatty infiltration of the liver. ASSESSMENT AND PLAN: A 37-year-old male who was evaluated because of pancytopenia, which has been chronic, especially his leukopenia. The etiology of his pancytopenia most likely related to his fatty liver and alcohol toxic effect on the bone marrow. In addition to that, he has also folate deficiency. RECOMMENDATIONS: I would like to obtain a flow cytometry on the peripheral blood. Also, a peripheral blood smear, we will check his thyroid level. His folic acid has been already corrected. At this point, no need for transfusion. Agree with the current management. <ELECTRONICALLY SIGNED> By: Lilibeth Rodriguez MD 08/27/18 0945 1634 [id number] Rodriguez MD /nt
[2018-08-27 11:22] VITALS: BP 100/73
--- NOTE | 2018-08-27 12:15 | CARDNUC ---
[place] [address] CARDIAC NUCLEAR IMAGING REPORT Name: SHALOM GAR Room: [address] IN [facility]#: [id number] Admission: 08/25/18 Attend Phys: Dani Lyle, Discharge: Date of : 76 Date of Service: 08/27/18 1215 Report #: [id number] THIS REPORT FOR: //name// APPROVED REPORT Imaging Protocol: Rest Tc-99m/Stress Tc-99m 1 day Study performed: 08/26/2018 12:22:00 Indication: Tachycardia, HX of OR, Hypotension Patient Location: In-Patient Room #: 233 Stress Tech: Naima Yen Stress Nurse: Tila Garza RN NM Tech:FRANK Lane Ht: 6 ft 0 in Wt: 139 lbs BSA: 1.83 m2 BMI: 18.84 Medical History Medical History: HIV/AIDS, , CAD s/p OR, , Current Smoker, Fatigue, HTN, Hypotension, Tachycardia, , Weakness Medications: Carvedilol, Hydralazine Allergies: Morphine, Acetaminophen, Ibuprofen, Fentanyl, Clonidine Cardiac Risk Factors: Current Smoker, FHX of CAD, HTN Previous Cardiac Procedures: Myocardial infarction Pretest Chest Pain Characteristics: No chest pain Exercise History: Indeterminate Physical Disabilities: Generalized weakness/fatigue, HIV/AIDS. Meds Held (24 hrs): Carvedilol Resting Data Rest SPECT myocardial perfusion imaging was performed in supine position 30 minutes following the intravenous injection of 10.0 mCi of Tc-99m Sestamibi. Time of rest injection: 804 Date: 08/27/2018 Time of rest imagin The images were gated to evaluate regional wall motion and calculate left ventricular ejection fraction. Administration Route: IV Administration Site: Left AC Pharmacologic Stress Pharmacologic stress test was performed by injecting Regadenoson 0.4 mg IV push over 10-15 seconds immediately [place] [address] CARDIAC NUCLEAR IMAGING REPORT Name: SHALOM GAR Room: [address]#: [id number] Admission: 08/25/18 Attend Phys: Dani Lyle, Discharge: Date of : 76 Date of Service: 08/27/18 1215 Report #: [id number] injection of 33.7 mCi of Tc-99m Sestamibi. Time of stress injection: 924 Time of stress imagin Administration Route: IV Administration Site: Left AC Gated Stress SPECT was performed 40 minutes after stress injection. The images were gated to evaluate regional wall motion and calculate left ventricular ejection fraction. Stress only was performed in the Supine position. Stress Test Details Stress Test: Pharmacologic stress testing performed using 0.4 mg of regadenoson per 5 mL given IV over 10 seconds. Reason for pharmacologic stress test: physical limitation, Generalized weakness, Tachycardia.. HR Max Heart Rate (APMHR): 181 bpm Resting HR: 111 bpm Target HR (85% APMHR): 153 bpm Max HR Achieved: 129 bpm % of APMHR: 71 Recovery HR: 114 bpm HR response to stress: Normal HR response to stress BP Resting BP: 125/65 mmHg Recovery BP: 104/75 mmHg BP response to stress: Normal blood pressure response to stress. ECG Resting ECG: Sinus Rhythm, NSSTT changes Stress ECG: Sinus Rhythm, NSSTT changes ST Change: None Recovery ECG: Sinus Rhythm Recovery ST Change: None Clinical Reason for Termination: Completed protocol Stress Symptoms: Fatigue, Weakness Exercise duration: 0 min 0 sec Exercise capacity: 1.00 METs Nurse Comments 37 year old male presented with generalized weakness/fatigue and tachycardia with IV fluids infusing. [place] [address] CARDIAC NUCLEAR IMAGING REPORT Name: SHALOM GAR Room: [address]#: [id number] Admission: 08/25/18 Attend Phys: Dani Lyle, Discharge: Date of : 76 Date of Service: 08/27/18 1215 Report #: [id number] treadmill. Patient tolerated sitting Lexiscan well with increase fatigue and weakness which resolved some with caffeine. Patient was escorted by staff via wheelchair to Nuclear Medicine for images. Patient was stable at that time. Stress ECG Conclusion negative ecg portion Study Quality Study: Fair Artifact: Moderate Increased GI uptake Lung Uptake: Normal Study Data At rest, the left ventricular ejection fraction was 35%.. Post stress, the left ventricular ejection was 38%.. SSS: 2 SRS: 0 SDS: 2 TID = 0.93. Perfusion Review of SPECT images reveal a moderate intensity ,moderate sized perfusion defect of the inferseptum, which could partially be related to extracardiac gut uptake. There is also a moderate sized ,moderate intensity anterior defect . There is reduced LV function. Images were reviewed using Stray Boots. Wall Motion global LV dysfunction Nuclear Conclusion ECG Findings: negative for ischemia Clinical Findings: negative for ischemia Nuclear Findings: positive for ischemia Exercise Capacity: not assessed Left Ventricular Function: abnormal Risk Study: high Findings compatible with ischemic cardiomyopathy .There is an inferior defect which could be related to artifact, but the anterior defect , in particular is concerning for myocardial ischemia. [place] [address] CARDIAC NUCLEAR IMAGING REPORT Name: SHALOM GAR Room: [address] IN .#: [id number] Admission: 08/25/18 Attend Phys: Dani Lyle, Discharge: Date of : 76 Date of Service: 08/27/18 1215 Report #: [id number] <Conclusion> negative ecg portion <ELECTRONICALLY SIGNED> By: Arturo Guzmán MD, FACC 08/27/181214 14 14 Arturo Guzmán MD, FACC /INF
[2018-08-27 20:00] VITALS: BP 101/75
[2018-08-28] VITALS: BP 101/71
[2018-08-28 04:00] VITALS: BP 101/72
--- NOTE | 2018-08-28 05:19 | NUR ---
ASSUMED CARE OF PT AFTER REPORT AT 1930. PT A&OX4. VSS. PHYSICAL ASSESSMENT COMPLETED AND CHARTED. PT ON RA WITH 96% O2 SAT. PT TRACING SR/ST ON TELE. PT UP ADLIB TO RESTROOM. PT COMPLAINED OF ABDOMINAL AND PENILE PAIN WITH PAIN SCALE OF 10/10-PAIN MEDS GIVEN PER MAR WITH PARTIAL RELIEF. PT MIDLINE TO LEFT UPPER ARM AND PERIPHERAL LINE TO RIGHT HAND DISLODGED. DR BEAR INFORMED WITH ORDER TO INSERT PICC LINE THIS AM. HOURLY ROUNDING OBSERVED. HS REST & SAFETY GOALS ACHIEVED. CALL LIGHT WITHIN REACH. BED IN LOW POSITION.
[2018-08-28 08:50] VITALS: BP 100/68
--- NOTE | 2018-08-28 11:02 | NUR ---
RECEIVED CALL FROM MANDI/HELEN LINARES. SHE STATED THAT PT HAS A [employer] AND TEAM THAT FOLLOWS HIM AND WOULD LIKE DC INFO FAXED TO THEM. FAXED DC SUMMARY FROM 08/15 TO HER. ALSO PLACED CALL TO PT'S [employer] OFFICER/JOELLE DAVIS, HAD TO LEAVE VMAIL. HELEN LINARES/MANDI [phone] FAX [phone] JOELLE DAVIS [phone]
[2018-08-28 12:00] VITALS: BP 104/78
[2018-08-28 15:38] VITALS: BP 94/69
--- NOTE | 2018-08-28 16:37 | NUR ---
RECEIVED REPORT FROM RAJWINDER AND ASSUMED CARE OF PT AT 0730. PT IS ALERT AND ORIENTED X 4 AND IRRITABLE. 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 VSS, BP RUNNING LOW IN 100'S/60-70'S. PT REPORTS ABDOMEN IS TENDER, HOWEVER PAIN IS WELL MANAGED WITH PO AND IV PAIN MEDICATIONS. LAST BM TODAY. PT IS ON HEART HEALTHY DIET BUT WILL BE NPO AFTER MIDNIGHT FOR CARDIAC CATH TOMORROW. CONSENT ON CHART BUT NOT SIGNED. NEW PICC LINE SINGLE LUMEN INSERTED TODAY IN LEFT UPPER ARM BY PICC NURSE. PICC CLEAN DRY AND INTACT. PT IS UP AD RODRIGO IN THE ROOM. PT ROOM SMELLS OF CIGARETTE SMOKE AND SECURITY NOTIFIED AN EMPTY CIGARETTE PACKET FOUND. PT EDUCATED ON THE IMPORTANCE OF NOT SMOKING INSIDE HOSPITAL. PT STATES I KNOW. PT REFUSED MULTIPLE TIMES TO SHOWER. HOURLY ROUNDING PERFORMED ON PT FOR PT SAFETY. PT INFORMED OF PLAN OF CARE. PT VERBALIZE UNDERSTANDING. CALL LIGHT WITHIN REACH. NURSE WILL CONTINUE TO MONITOR FOR DURATION OF SHIFT.
[2018-08-28 16:45] LABS: HEMOGLOBIN 7.7 gm/dL (14.0-18.0); MCH 27.7 pg (26.0-34.0); MCHC 31.3 g/dL (28.0-37.0); MCV 88.5 fL (80.0-100.0); WBC 4.2 thou/uL (4.0-11.0)
[2018-08-28 16:47] LABS: HEMATOCRIT 24.5 % (42.0-52.0); MPV 10.1 fl. (7.2-11.1); NUCLEATED RBCS 3 /100WBC; PLATELET COUNT* 118 thou/uL (150-400); RBC 2.76 mil/uL (4.50-6.00); RDW-CV 18.5 % (10.5-14.5)
[2018-08-28 16:55] LABS: ALBUMIN 1.7 g/dL (3.4-5.0); CALCIUM 7.4 mg/dL (8.5-10.1); CREATININE 1.2 mg/dL (0.6-1.3); POTASSIUM 4.5 mmol/L (3.5-5.1); TOTAL BILIRUBIN 0.6 mg/dL (<0.1-1.0); TOTAL PROTEIN 5.2 g/dL (6.4-8.2)
[2018-08-28 17:28] LABS: ABSOLUTE LYMPHOCYTES 1.8 thou/uL (0.8-5.3); ABSOLUTE MONOCYTES 0.3 thou/uL (0.0-1.2); ABSOLUTE NEUTROPHILS 2.1 thou/uL (1.6-8.1); PLATELET ESTIMATE ADEQUATE
[2018-08-28 17:29] LABS: ANISOCYTOSIS 1+; POLYCHROMASIA 3+; TARGET CELLS 3+
[2018-08-28 20:00] VITALS: BP 102/75
[2018-08-29] VITALS (17 sets, daily range): BP systolic 95–128; BP diastolic 58–95
[2018-08-29 03:39] LABS: ABSOLUTE BASOPHILS 0.1 thou/uL (0.0-0.2); ABSOLUTE MONOCYTES 0.3 thou/uL (0.0-1.2); HEMOGLOBIN 7.1 gm/dL (14.0-18.0); WBC 3.9 thou/uL (4.0-11.0)
[2018-08-29 03:41] LABS: ABSOLUTE LYMPHOCYTES 1.8 thou/uL (0.8-5.3); ABSOLUTE NEUTROPHILS 1.7 thou/uL (1.6-8.1); BASOPHILS 1.6 %; EOSINOPHILS 0.9 %; HEMATOCRIT 22.6 % (42.0-52.0); LYMPHOCYTES 46.7 %; MCH 27.7 pg (26.0-34.0); MCHC 31.6 g/dL (28.0-37.0); MCV 87.8 fL (80.0-100.0); MONOCYTES 6.9 %; NUCLEATED RBCS 2 /100WBC; PLATELET COUNT* 108 thou/uL (150-400); POLYS 43.9 %; RBC 2.57 mil/uL (4.50-6.00); RDW-CV 18.5 % (10.5-14.5)
[2018-08-29 03:50] LABS: ALBUMIN 1.6 g/dL (3.4-5.0); CALCIUM 7.2 mg/dL (8.5-10.1); CREATININE 1.1 mg/dL (0.6-1.3); POTASSIUM 4.4 mmol/L (3.5-5.1); TOTAL BILIRUBIN 0.3 mg/dL (<0.1-1.0)
--- NOTE | 2018-08-29 04:54 | NUR ---
ASSUMED CARE OF PT AFTER REPORT AT 1930. PT A&OX4. VSS. PHYSICAL ASSESSMENT COMPLETED AND CHARTED. PT ON RA WITH 94% O2 SAT. PT TRACING SR ON TELE. PT UP ADLIB TO RESTROOM. PT WITH PICC LINE TO LEFT UPPER ARM PATENT AND INTACT. PT COMPLAINED OF CONSTANT ABDOMINAL AND PENILE PAIN WITH PAIN SCALE OF 9/10-PAIN MEDS GIVEN PER MAR WITH NO RELIEF. INSTRUCTED ON NPO POST MIDNIGHT FOR CARDIAC CATH TODAY. COMMUNICATES UNDERSTANDING. HOURLY ROUNDING OBSERVED. CALL LIGHT WITHIN REACH. BED IN LOW POSITION.
[2018-08-29 11:05] LABS: APTT 29.2 Seconds (25.0-31.3); INR 1.3; PROTIME 12.9 Seconds (9.20-11.50)
--- NOTE | 2018-08-29 17:04 | CARD ---
[address] [address] CARDIAC CATH REPORT Name: SHALOM GAR Room: [address] IN [facility]#: [id number] Admission: 08/25/18 Attend Phys: Dani Lyle MD Discharge: Date of : 76 Report #: [id number] THIS REPORT FOR: //name// APPROVED REPORT Study performed: 08/29/2018 12:03:11 Patient Details Patient Status: In-Patient Room #: 228 The patient is a 37 year-old Event Personnel Marlo Krishnamurthy Promotion Specialist, Analia Seay RN Cosmetic Account Coordinator, Alicia King RN Cosmetic Account Coordinator, Lito Winn (R) Monitor, Valerie Cochran ACOUSTICAL TILE DRILL PRESS OPERATOR Scrub Procedures Performed Left Heart Cath w/or w/o Coronaries Procedure Narrative A Slender Glidesheath sheath was inserted into the right radial artery. Coronary angiography was performed using coronary diagnostic catheters. The right coronary system was accessed and visualized with a Diagnostic Tig 4 catheter. The left coronary system was accessed and visualized with a Diagnostic Tig 4 catheter. The left ventricle was accessed and visualized with a Diagnostic Angled Pigtail catheter. Left ventricular/Aortic Valve gradient assessed via catheter pullback. Closure device was deployed with a Fr Vasc-Band Reg 24cm. The patient tolerated the procedure well and there were no complications associated with the procedure. Intraoperative Conscious Sedation Sedation start time: 13:20 Case end Time: 13:34 Versed 1 mg Fluoro Time: 2.2 minutes Dose: DAP 69445 cGycm2 291 mGy Contrast Type and Amount: Omnipaque 60 ml Coronary Angiography The patient's coronary anatomy is right dominant. Diagnostic [place] [address] CARDIAC CATH REPORT Name: YURILenchoSHALOM Ilana Room: [address] IN [facility]#: [id number] Admission: 08/25/18 Attend Phys: Dani Lyle MD Discharge: Date of : 76 Report #: [id number] LAD Normal in the proximal mid and distal portion. Diagonal 1 Large branched and normal. Circumflex Normal in the proximal mid and distal portion. OM1 Small in caliber and normal. OM2 Large branched and normal. Right Coronary Normal on the proximal mid and distal portion. R PDA Normal. RPLV Normal. Left Ventriculography The left ventricle is mildly dilated in size with decreased contractility. The left ventricular ejection fraction is estimated to be 20-25%. There is severe global hypokinesis. Hemodynamics The aortic pressure is 85/64 mmHg with a mean of 71 mmHg. The left ventricular pressure is 84/6 mmHg with a mean of mmHg. The left ventricular end diastolic pressure is 11 mmHg. Conclusion 1. Normal coronary arteries. 2. Severe global left ventricular systolic dysfunction. 3. Normal left ventricular end-diastolic pressure. Recommendations Continue medical management and heart failure management. <ELECTRONICALLY SIGNED> By: Marlo Krishnamurthy MD, FACC 08/29/181703 03 03Micdelonte Krishnamurthy MD, FACC /INF
--- NOTE | 2018-08-29 18:28 | NUR ---
RECEIVED REPORT FROM RAJWINDER AND ASSUMED CARE OF PT AT 0730. PT ALERT AND ORIENTED X 4. ASSESSMENT COMPLETED CHARTED. VSS TRACING NORMAL SINUS RHYTHM. PT LUNGS SOUNDS COURSE WITH EXPIRATORY WHEEZE. PICC LINE LEFT UPPER ARM PATENT AND SALINE LOCKED. PT NPO STATUS FOR CATH PROCEDURE. CATH COMPLETED IN RIGHT RADIAL. POST CATH VITAL SIGNS COMPLETED. CATH SITE CLEAN DRY AND INTACT. LIMB ALERTS PLACED ON BILATERAL UPPER EXTREMITIES. PT UP AD RODRIGO IN ROOM. CHEST XRAY COMPLETED. PT STARTED ON IV ANTIBIOTICS. PAIN MANAGED WELL WITH PO MEDICATIONS. HOURLY ROUNDING COMPLETED FOR PT PT SAFETY. CALL LIGHT WITHIN REACH. WILL CONTINUE TO MONITOR FOR DURATIONS OF SHIFT.
[2018-08-30] VITALS (7 sets, daily range): BP systolic 114–134; BP diastolic 70–86
[2018-08-30 05:09] LABS: ABSOLUTE EOSINOPHILS 0.1 thou/uL (0.0-0.7); ABSOLUTE LYMPHOCYTES 1.1 thou/uL (0.8-5.3); ABSOLUTE MONOCYTES 0.4 thou/uL (0.0-1.2); ABSOLUTE NEUTROPHILS 2.2 thou/uL (1.6-8.1); BASOPHILS 0.9 %; HEMATOCRIT 22.8 % (42.0-52.0); HEMOGLOBIN 7.3 gm/dL (14.0-18.0); LYMPHOCYTES 29.4 %; MCH 28.3 pg (26.0-34.0); MCV 88.4 fL (80.0-100.0); MPV 10.7 fl. (7.2-11.1); NUCLEATED RBCS 1 /100WBC; PLATELET COUNT* 119 thou/uL (150-400); POLYS 56.7 %; RBC 2.58 mil/uL (4.50-6.00); WBC 3.9 thou/uL (4.0-11.0)
[2018-08-30 05:29] LABS: ALBUMIN 1.5 g/dL (3.4-5.0); CALCIUM 7.2 mg/dL (8.5-10.1); CREATININE 0.9 mg/dL (0.6-1.3); POTASSIUM 3.9 mmol/L (3.5-5.1); TOTAL BILIRUBIN 0.2 mg/dL (<0.1-1.0); TOTAL PROTEIN 4.9 g/dL (6.4-8.2)
[2018-08-30 05:39] LABS: PREALBUMIN 8.7 mg/dL (18.0-35.7)
--- NOTE | 2018-08-30 05:53 | NUR ---
ASSUMED PT CARE AT 1930, PT IS A&OX4, PT IS TRACING NSR ON THE MONITOR,ON RA. PT C/O PAIN PRN PAIN MEDICATIONS GIVEN PER DEC. PT IS POST CATH TO RIGHT RADIAL. CATH SITE IS CDI. DRESSING PLACED BY THIS RN. VERBAL EDUCATION GIVEN PER LIMB RESTRICITIONS. PT IS UP AD RODRIGO IN HIS ROOM. APPEARS TO BE STABLE ON HIS FEET. BED IN LOW POSITION, CALL LIGHT IN REACH, HOURLY ROUNDING COMPLETED FOR PT SAFETY.
--- NOTE | 2018-08-30 07:15 | NUR ---
RECIEVED REPORT. ASSUMED CARE OF PT AT 0730. VSS. CARDIAC MONITORING IN PLACE SR. AM ASSESSMENT AND VITALS COMPLETED CHARTED. PT ALERT AND ORIENTED. PT ON RA WITH O2 SAT AT 100% PT DOES REPORT FEELING CONGESTED AND SOA AT TIMES. NOTED WHEEZING THROUGHOUT LUNGS. PT DENEIS PAIN THIS AM. NOTED LIMB ALERTS ON BUE. DRESSING TO RIGHT RADIAL C/D/I. PICC LINE IN PLACE SL. PT IS UP AD RODRIGO IN ROOM. PT INFORMED OF PLAN OF CARE. NOTED MED CHANGES PER CARDIOLOGY. CALL LIGHT IS WITHIN REACH. WILL CONTINUE TO MONITOR FOR DURAIOTN OF SHIFT.
--- NOTE | 2018-08-30 11:11 | NUR ---
CONTINUE TO FOLLOW, MET WITH PT. HE DENIES DC NEEDS, ANTICPATE DC TOMORROW. PT AWARE. PLANS TO RETURN HOME WITH HIS MOTHER. DIETITIAN TO SEE, MESSAGE LEFT FOR MELIA. DC INFO WILL NEED TO BE CALLED AND FAXED TO [facility], PLEASE SEE PREVIOUS CM NOTE FOR NUMBERS. NO OTHER DC NEEDS ID'D
--- NOTE | 2018-08-30 18:00 | NUR ---
RECEIVED REPORT AT ASSUMED CARE AT 1600. PT HAS REMAINED STABLE REMAINDER OF SHIFT. TREATED FOR PAIN X 1 WITH OXY, TOLERATED WELL. NO FURTHER COMPLAINTS AT THIS TIME. PT. WITH DECENT APPETITE AT DINNER. CALL LIGHT IN REACH, WILL CONTINUE WITH PLAN OF CARE.
[2018-08-31] VITALS: BP 129/82
--- NOTE | 2018-08-31 03:33 | NUR ---
ASSUMED PT CARE AT 1930. ASSESSMENT COMPLETED CHARTED. ABLE TO MAKE NEEDS KNOWN. C/O ACHES AND PAINS EVERYWHERE. GAVE PRN PAIN MEDS REQUESTED PER P.O. UP AD RODRIGO. PT RESTING IN BED AT THIS TIME. WILL CONTINUE TO MONITOR.
[2018-08-31 04:00] VITALS: BP 133/86
[2018-08-31 04:46] LABS: HEMATOCRIT 22.3 % (42.0-52.0); HEMOGLOBIN 7.1 gm/dL (14.0-18.0); MCH 28.3 pg (26.0-34.0); MCHC 31.9 g/dL (28.0-37.0); MCV 88.8 fL (80.0-100.0); MPV 10.5 fl. (7.2-11.1); RBC 2.52 mil/uL (4.50-6.00); RDW-CV 19.5 % (10.5-14.5); WBC 4.5 thou/uL (4.0-11.0)
[2018-08-31 05:00] LABS: CALCIUM 7.2 mg/dL (8.5-10.1); CREATININE 0.8 mg/dL (0.6-1.3); MAGNESIUM 1.7 mg/dL (1.8-2.4); POTASSIUM 3.7 mmol/L (3.5-5.1)
[2018-08-31 08:00] VITALS: BP 143/89
[2018-08-31] MEDS ORDERED: COREG6.25 MG PO (11:46)
[2018-08-31] MEDS ORDERED: OXYCODONE HCL 55 MG PO (11:46)
[2018-08-31] MEDS ORDERED: FOLIC ACID1 MG PO (11:46)
[2018-08-31] MEDS ORDERED: VITAMIN B-1100 M1 PO (11:46)
[2018-08-31] MEDS ORDERED: SPIRONOLACTONE25 MG PO (11:46)
[2018-08-31] MEDS ORDERED: PANCRELIPASE PO (11:46)
[2018-08-31] MEDS ORDERED: DIFLUCAN200 MG PO (11:46)
[2018-08-31] MEDS ORDERED: COZAAR 50 MG TA50 M1 PO (11:46)
[2018-08-31 11:53] VITALS: BP 137/91
[2018-08-31 13:00] VITALS: BP 132/78
--- NOTE | 2018-08-31 13:44 | NUR ---
PT ALERT, ORIENTED AND ALL VSS ON ROOM AIR. C/O ABD PAIN- MEDICATED PER EMAR. EDUCATED ON SAFETY AND PLAN OF CARE. PLEASE SEE ASSESSMENT FOR ADDITIONAL INFORMATION. PICC DC PRIOR TO DC HOME IN STABLE IN WITH ALL BELONGINGS. PT DC HOME IN STABLE CONDITION AT APPROX 1345
--- NOTE | 2018-09-02 08:44 | NUR ---
CALLED AND FAXED PT'S DC INFO TO HELEN [facility]ES/MANDI PER REQUEST
== END 2018-08-31 13:45 | disposition home or self-care (01) | DRG 280 ==
LOC: M.ERS 20:15 → M.2W 22:42 → M.TBA-ER 22:42 → M.2W 23:43
PROVIDERS: Emergency Medicine; Internal Medicine; Internal Medicine Cardiovascular Disease; Podiatrist Foot Surgery; ADMIT Internal Medicine
PROC: 02HV33Z Insertion of Infusion Device into Superior Vena Cava, Percutaneous Approach (ICD-10-PCS; principal; 2018-08-28)
PROC: B2111ZZ Fluoroscopy of Multiple Coronary Arteries using Low Osmolar Contrast (ICD-10-PCS; 2018-08-29)
PROC: 4A023N7 Measurement of Cardiac Sampling and Pressure, Left Heart, Percutaneous Approach (ICD-10-PCS; 2018-08-29)
PROC: B2151ZZ Fluoroscopy of Left Heart using Low Osmolar Contrast (ICD-10-PCS; 2018-08-29)
DX: I21.4 Non-ST elevation (NSTEMI) myocardial infarction (principal); G92 Toxic encephalopathy; I50.23 Acute on chronic systolic (congestive) heart failure; E43 Unspecified severe protein-calorie malnutrition; D61.818 Other pancytopenia; D62 Acute posthemorrhagic anemia; F10.221 Alcohol dependence with intoxication delirium; K86.1 Other chronic pancreatitis; I42.9 Cardiomyopathy, unspecified; Z68.42 Body mass index [BMI] 45.0-49.9, adult; F32.9 Major depressive disorder, single episode, unspecified; F41.9 Anxiety disorder, unspecified; E86.0 Dehydration; I95.9 Hypotension, unspecified; K64.4 Residual hemorrhoidal skin tags; F17.210 Nicotine dependence, cigarettes, uncomplicated; Z21 Asymptomatic human immunodeficiency virus [HIV] infection status; G89.29 Other chronic pain; K64.8 Other hemorrhoids; K70.10 Alcoholic hepatitis without ascites; I11.0 Hypertensive heart disease with heart failure; Z71.6 Tobacco abuse counseling; Z71.41 Alcohol abuse counseling and surveillance of alcoholic; Z91.14 Patient's other noncompliance with medication regimen; Z79.899 Other long term (current) drug therapy; Z88.5 Allergy status to narcotic agent; Z88.8 Allergy status to other drugs, medicaments and biological substances

== ENCOUNTER 2018-09-24 22:19 | Emergency (ER) | payer MEDICAID ==
[~2018-09-24] VITALS: Ht 182.9 cm; Wt 61.2 kg
[~2018-09-24 22:19] MED LIST changes: +COREG6.25 MG PO; +COZAAR 50 MG TA50 M1 PO; +DIFLUCAN200 MG PO; +FOLIC ACID1 MG PO; +OXYCODONE HCL 55 MG PO; +PANCRELIPASE PO; +SPIRONOLACTONE25 MG PO; +VITAMIN B-1100 M1 PO
[2018-09-24 23:46] LABS: AMP/METHAMP Negative (Negative); BARBITURATES Negative (Negative); BENZODIAZEPINES Negative (Negative); COCAINE Negative (Negative); METHADONE Negative (Negative); OPIATES Negative (Negative); PCP Negative (Negative); THC Negative (Negative)
[2018-09-24 23:47] LABS: CREATININE 0.7 mg/dL (0.6-1.3); POTASSIUM 3.7 mmol/L (3.5-5.1)
[2018-09-24 23:52] LABS: ALBUMIN 2.3 g/dL (3.4-5.0); TOTAL BILIRUBIN 0.2 mg/dL (<0.1-1.0)
[2018-09-24 23:54] LABS: HEMOGLOBIN 10.2 gm/dL (14.0-18.0); NUCLEATED RBCS 0 /100WBC
[2018-09-24 23:56] LABS: HEMATOCRIT 31.6 % (42.0-52.0); MCH 27.2 pg (26.0-34.0); MCHC 32.3 g/dL (28.0-37.0); MCV 84.1 fL (80.0-100.0); MPV 8.7 fl. (7.2-11.1); PLATELET COUNT* 135 thou/uL (150-400); RBC 3.76 mil/uL (4.50-6.00); RDW-CV 21.7 % (10.5-14.5); WBC 3.2 thou/uL (4.0-11.0)
[2018-09-25 00:12] LABS: URINE BILIRUBIN NEGATIVE (Negative); URINE BLOOD NEGATIVE (Negative); URINE CLARITY CLEAR; URINE COLOR YELLOW; URINE GLUCOSE-RANDOM NEGATIVE (Negative); URINE KETONES NEGATIVE (Negative); URINE LEUKOCYTES-REFLEX NEGATIVE (Negative); URINE NITRITE-REFLEX NEGATIVE (Negative); URINE PROTEIN 2+ (Negative); URINE UROBILINOGEN 0.2 E.U./dl (0.2-1.0)
[2018-09-25 00:39] LABS: SQUAMOUS 0-3 Few /LPF (0-3)
[2018-09-25 00:40] LABS: CASTS None Seen /LPF (None Seen)
[2018-09-25 00:42] LABS: BACTERIA-REFLEX None Seen /HPF (None Seen); CRYSTALS None Seen /LPF (None Seen); URINE RBC None Seen /HPF (0-2); URINE WBC-REFLEX None Seen /HPF (0-5)
[2018-09-25] MEDS ORDERED: VANCOCIN 125 M125 M1 PO (00:54)
[2018-09-25 00:59] VITALS: BP 110/78
[2018-09-25 01:54] LABS: ABSOLUTE EOSINOPHILS 0.1 thou/uL (0.0-0.7); ABSOLUTE LYMPHOCYTES 1.3 thou/uL (0.8-5.3); ABSOLUTE MONOCYTES 0.2 thou/uL (0.0-1.2); ABSOLUTE NEUTROPHILS 1.6 thou/uL (1.6-8.1); GIANT PLATELETS OCCASIONAL; LARGE PLATELETS OCCASIONAL; PLATELET ESTIMATE DECREASED
[2018-09-25 01:55] LABS: ANISOCYTOSIS 2+; POLYCHROMASIA 1+; TARGET CELLS 1+
== END 2018-09-25 01:00 | disposition home or self-care (01) ==
LOC: M.ERS 22:19
PROVIDERS: Physician Assistant
DX: K52.9 Noninfective gastroenteritis and colitis, unspecified (principal); R05 Cough; R09.81 Nasal congestion; I10 Essential (primary) hypertension; F32.9 Major depressive disorder, single episode, unspecified; F41.9 Anxiety disorder, unspecified; F17.210 Nicotine dependence, cigarettes, uncomplicated; Z88.6 Allergy status to analgesic agent; Z88.5 Allergy status to narcotic agent; Z88.8 Allergy status to other drugs, medicaments and biological substances; Z79.899 Other long term (current) drug therapy

== ENCOUNTER 2018-10-01 23:32 | Inpatient (IN) | payer MEDICAID ==
[~2018-10-01] VITALS: Ht 182.9 cm; Wt 59.0 kg
--- NOTE | ~2018-10-01 | H ---
[address] [address] HISTORY AND PHYSICAL Name: SHALOM GAR Room: [address] IN ..#: [id number] Admission: 10/02/18 Attend Phys: Ashlee Armstrong MD Discharge: 10/02/18 Date of : 76 Report #: [id number] THIS REPORT FOR: //name// Patient was here less than 24 hour please refer to the final summation note. See Dr. Armstrong's progress note in PCI. By: [id number] Records Staff [facility] /KHARI
[~2018-10-01 23:32] MED LIST changes: +VANCOCIN 125 M125 M1 PO
[2018-10-01 23:40] VITALS: BP 125/81
[2018-10-02] VITALS (16 sets, daily range): BP systolic 96–163; BP diastolic 39–110
[2018-10-02 00:02] LABS: BE -4.8 mmol/L (-2 to +3); HCO3 18.1 mmol/L (22.0-26.0); PCO2 26.4 mmHg (35.0-45.0); PO2 76.8 mmHg (75.0-100.0); pH 7.455 (7.340-7.450)
[2018-10-02 00:56] LABS: HEMOGLOBIN 9.6 gm/dL (14.0-18.0); WBC 4.8 thou/uL (4.0-11.0)
[2018-10-02 00:58] LABS: HEMATOCRIT 29.9 % (42.0-52.0); MCH 26.7 pg (26.0-34.0); MCHC 32.1 g/dL (28.0-37.0); MCV 83.2 fL (80.0-100.0); NUCLEATED RBCS 0 /100WBC; PLATELET COUNT* 84 thou/uL (150-400); RBC 3.59 mil/uL (4.50-6.00); RDW-CV 22.5 % (10.5-14.5)
[2018-10-02 00:59] LABS: APTT 32.1 Seconds (25.0-31.3); INR 1.1; PROTIME 11.5 Seconds (9.20-11.50)
[2018-10-02 01:01] LABS: ANION GAP 14 mmol/L (7-16); BUN 14 mg/dL (7-18); CALCIUM 8.1 mg/dL (8.5-10.1); CHLORIDE 99 mmol/L (98-107); CO2 22 mmol/L (21-32); GLUCOSE 79 mg/dL (70-99); POTASSIUM 3.8 mmol/L (3.5-5.1); SODIUM 135 mmol/L (136-145)
[2018-10-02 01:12] LABS: ALBUMIN 1.9 g/dL (3.4-5.0); ALKALINE PHOSPHATASE 148 U/L (46-116); LIPASE 45 U/L (73-393); NT-PRO BRAIN NAT PEPTIDE 2202 pg/mL (<300); SGOT 91 U/L (15-37); SGPT 59 U/L (30-65); TOTAL BILIRUBIN 0.7 mg/dL (<0.1-1.0); TOTAL PROTEIN 6.6 g/dL (6.4-8.2); TROPONIN-I LEVEL <0.06 ng/mL (<0.06)
--- NOTE | 2018-10-02 02:00 | NUR ---
VANCOMYCIN IV SENT TO FLOOR
[2018-10-02 02:08] LABS: ABSOLUTE LYMPHOCYTES 0.3 thou/uL (0.8-5.3); ABSOLUTE MONOCYTES 0.2 thou/uL (0.0-1.2); ABSOLUTE NEUTROPHILS 4.3 thou/uL (1.6-8.1)
[2018-10-02 02:09] LABS: PLATELET ESTIMATE DECREASED
[2018-10-02 02:10] LABS: ANISOCYTOSIS 2+; HYPOCHROMASIA 1+; POLYCHROMASIA 1+; TARGET CELLS Occasional
[2018-10-02 05:10] LABS: URINE BILIRUBIN NEGATIVE (Negative); URINE BLOOD TRACE (Negative); URINE CLARITY CLEAR; URINE COLOR YELLOW; URINE GLUCOSE-RANDOM NEGATIVE (Negative); URINE KETONES NEGATIVE (Negative); URINE LEUKOCYTES-REFLEX NEGATIVE (Negative); URINE NITRITE-REFLEX NEGATIVE (Negative); URINE PROTEIN 2+ (Negative); URINE SPECIFIC GRAVITY 1.025 (1.005-1.030)
[2018-10-02 05:19] LABS: BACTERIA-REFLEX 1-9 Few /HPF (None Seen); FINE GRANULAR CASTS 0-3 Few /LPF (None Seen); MUCUS 0-3 Light strn/LPF (None Seen); SQUAMOUS 0-3 Few /LPF (0-3); URINE RBC 0-2 Rare /HPF (0-2); URINE WBC-REFLEX 0-5 Rare /HPF (0-5)
[2018-10-02 05:20] LABS: AMORPHOUS URATES Few /LPF (None Seen)
--- NOTE | 2018-10-02 05:33 | NUR ---
ASSUMED CARE OF PT AT ABOUT 0230. PT IS ALERT AND ORIENTED. PTS PULSE WAS IN THE 140'S. PT WAS GIVEN A FLUID BOLUS AND STARTED ON ANTIBIOTICS. PTS HEART RATE WENT UP TO THE 160'S. CENTRAL LINE WAS PLACED. PT WAS SENT DOWN TO THE ICU.
--- NOTE | 2018-10-02 07:05 | NUR ---
PT RECEIVED FORM TELE VIA HOSPITAL BED. PT MOVED TO ICU BED. PT NOTED TO HAVE AUDIBLE WHEEZING AND C/O BODY PAINS. PT ORIENTED TO ROOM, CALL SYSTEM AND TV CONTROLS. PT VERBALIZED GOOD UNDERSTANDING. CARDAIC MONITOR APPLIED WITH ALARMS SET. DR GORDILLO ARRIVED IN UNIT TO REMOVE LEFT SUBCLAVIAN CENTRAL LINE. LINE WAS ARTERIAL PLACED. LINE REMOVED AND PRESSURE HELD. PT WAS INTUBATED WITH 7.5 ETT. CENTRAL LINE WAS PLACED IN RIGHT SUBCLAVIAN. ETT AND CENTRAL LINE PLACEMENT CONFIRMED WITH XRAY IO LINE WAS PLACED IN RIGHT MANZO. FULLER CATH INSERTED AND CONNECTED TO BEDSIDE BAG. PT BEING TRANSFERRRED TO [facility] [id number]. REPORT CALLED TO [facility] HERE TO TRANSPORT. PT RECEIVED THE FOLLOWING DRUGS SUCCINYLCHOLINE 100 @ 0612 ETOMIDATE 10MG @ 0610 ETOMIDATE 20MG @ 0625 VERSED 5MG @ 0630 VERSED GTT STARTED AT 5MG/HR @ 0630 PROPOFOL GTT STARTED 40 MCG/HR @0640 PT DCD WITH [facility]W
--- NOTE | 2018-10-02 18:05 | EKG ---
[place] [address] ELECTROCARDIOGRAM REPORT Name: SHALOM GAR Room: [address] DIS IN .R.#: [id number] Admission: 10/02/18 Attend Phys: Ashlee Armstrong MD Discharge: 10/02/18 Date of : 76 Report #: [id number] THIS REPORT FOR: //name// [facility] ED Test Date: 2018-10-02 Test Time: 01:07:50 Pat Name: SHALOM GAR Department: Room: [address] Gender: M Timber Management Specialist: GL : 1980 Requested By: Kasia Arvizu Order Number: [id number] MD: Marlo Krishnamurthy Measurements Intervals [place] Rate: 133 P: 74 CA: 149 QRS: 28 QRSD: 88 T: 7 QT: 306 QTc: 456 Interpretive Statements Sinus tachycardia Possible left atrial enlargement Anteroseptal infarct, old, possible Borderline T abnormalities, inferior leads Artifact in lead(s) I,II,III,aVR,aVL,aVF,V4,V5,V6 Compared to ECG 08/25/2018 20:59:09 No significant changes Electronically Signed On 10-02-2018 18:05:38 HEALTH COMMUNICATIONS SPECIALIST by Marlo Krishnamurthy [email or web address] <ELECTRONICALLY SIGNED> By: Marlo Krishnamurthy MD, FACC 10/02/18 1805 6 6 Marlo Krishnamurthy MD, FAC /EPI
== END 2018-10-02 07:00 | disposition short-term general hospital (02) | DRG 195 ==
LOC: M.ERS 23:32 → M.TBA-ER 10-02 01:27 → M.2W 10-02 01:40 → M.ICU 10-02 04:49
PROVIDERS: Personal Emergency Response Attendant; ADMIT Internal Medicine
PROC: 0BH17EZ Insertion of Endotracheal Airway into Trachea, Via Natural or Artificial Opening (ICD-10-PCS; principal; 2018-10-02)
PROC: 02HV33Z Insertion of Infusion Device into Superior Vena Cava, Percutaneous Approach (ICD-10-PCS; principal; 2018-10-02)
DX: J18.9 Pneumonia, unspecified organism (principal); I10 Essential (primary) hypertension; F32.9 Major depressive disorder, single episode, unspecified; D69.6 Thrombocytopenia, unspecified; F41.9 Anxiety disorder, unspecified; F17.210 Nicotine dependence, cigarettes, uncomplicated; Z79.899 Other long term (current) drug therapy; Z88.5 Allergy status to narcotic agent; Z88.8 Allergy status to other drugs, medicaments and biological substances

== ENCOUNTER 2018-10-08 18:25 | Emergency (ER) | payer MEDICAID ==
[~2018-10-08] VITALS: Ht 182.9 cm; Wt 61.2 kg
[2018-10-08 18:33] VITALS: BP 121/83
--- NOTE | 2018-10-09 11:32 | EKG ---
[place] [address] ELECTROCARDIOGRAM REPORT Name: SHALOM GAR Room: [facility]#: [id number] Admission: 10/08/18 Attend Phys: Discharge: 10/08/18 Date of : 76 Report #: [id number] THIS REPORT FOR: //name// [facility] ED Test Date: 2018-10-08 Test Time: 18:32:28 Pat Name: SHALOM GAR Department: Room: Gender: M Erp Implementation Consultant: KHARI : 1980 Requested By: Javier Ramsey Order Number: [id number] MD: David Louise Measurements Intervals [place] Rate: 103 P: 61 WI: 150 QRS: 36 QRSD: 97 T: 19 QT: 358 QTc: 469 Interpretive Statements Sinus tachycardia septal q waves Compared to ECG 10/02/2018 01:07:50 rate slowed Electronically Signed On 10-09-2018 11:32:15 CRECHE ATTENDANT by David Louise [email or web address] <ELECTRONICALLY SIGNED> By: David Louise MD, [facility] 10/09/18 1132 1832 183 David Louise MD, FACC /EPI
== END 2018-10-08 18:42 | disposition left against medical advice (07) ==
LOC: M.ERS 18:25
DX: Z53.21 Procedure and treatment not carried out due to patient leaving prior to being seen by health care provider (principal)

== ENCOUNTER 2018-10-30 02:52 | Inpatient (IN) | payer MEDICAID ==
[~2018-10-30] VITALS: Ht 182.9 cm; Wt 60.8 kg
[2018-10-30 03:02] VITALS: BP 114/85
[2018-10-30 03:57] LABS: HEMOGLOBIN 9.4 gm/dL (14.0-18.0); MCV 84.1 fL (80.0-100.0); WBC 3.7 thou/uL (4.0-11.0)
[2018-10-30 03:59] LABS: HEMATOCRIT 29.1 % (42.0-52.0); MCH 27.1 pg (26.0-34.0); MCHC 32.3 g/dL (28.0-37.0); MPV 7.9 fl. (7.2-11.1); NUCLEATED RBCS 0 /100WBC; PLATELET COUNT* 148 thou/uL (150-400); RBC 3.47 mil/uL (4.50-6.00); RDW-CV 23.7 % (10.5-14.5)
[2018-10-30 04:01] LABS: CALCIUM 7.4 mg/dL (8.5-10.1); CREATININE 0.6 mg/dL (0.6-1.3)
[2018-10-30 04:07] LABS: APTT 28.2 Seconds (25.0-31.3); INR 1.1; PROTIME 10.8 Seconds (9.20-11.50)
[2018-10-30 04:12] LABS: ALBUMIN 2.3 g/dL (3.4-5.0); TOTAL BILIRUBIN 0.2 mg/dL (<0.1-1.0); TOTAL PROTEIN 6.6 g/dL (6.4-8.2); TROPONIN-I LEVEL 0.44 ng/mL (<0.06)
[2018-10-30 05:11] LABS: URINE BILIRUBIN NEGATIVE (Negative); URINE BLOOD NEGATIVE (Negative); URINE CLARITY CLEAR; URINE COLOR YELLOW; URINE GLUCOSE-RANDOM NEGATIVE (Negative); URINE KETONES NEGATIVE (Negative); URINE LEUKOCYTES-REFLEX NEGATIVE (Negative); URINE NITRITE-REFLEX NEGATIVE (Negative); URINE PROTEIN TRACE (Negative); URINE SPECIFIC GRAVITY <= 1.005 (1.005-1.030); URINE UROBILINOGEN 0.2 E.U./dl (0.2-1.0)
[2018-10-30 05:18] LABS: ABSOLUTE EOSINOPHILS 0.1 thou/uL (0.0-0.7); ABSOLUTE LYMPHOCYTES 1.6 thou/uL (0.8-5.3); ABSOLUTE MONOCYTES 0.2 thou/uL (0.0-1.2); ABSOLUTE NEUTROPHILS 1.7 thou/uL (1.6-8.1); ATYPICAL LYMPHS 1 %; HYPOCHROMASIA 1+; LARGE PLATELETS OCCASIONAL; PLATELET ESTIMATE DECREASED; TARGET CELLS 1+
[2018-10-30 05:19] LABS: ANISOCYTOSIS 1+; POIKILOCYTOSIS 1+; SCHISTOCYTES Occasional
--- NOTE | 2018-10-30 07:17 | NUR ---
I ASSUMED CARE OF THE PATIENT FROM NIGHT NURSE. HE IS WAITING ON A BED THAT IS TO BE ASSIGNED AFTER SHIFT CHANGE. FLUIDS ARE INFUSING AND PATIENT NEEDS ARE MET. PLAN OF CARE HAS BEEN EXPLAINED.
[2018-10-30 08:25] VITALS: BP 115/86
[2018-10-30 08:30] VITALS: BP 141/115
[2018-10-30 11:48] VITALS: BP 125/89
--- NOTE | 2018-10-30 14:02 | NUR ---
Pt is A&O. Pt in and out of sleep. Resides at home with his mother. Independent with ADLs. No DME. No hx of HH or SNF. Goal is home at ca. Following.
[2018-10-30 16:27] VITALS: BP 121/80
--- NOTE | 2018-10-30 18:06 | EKG ---
[place] [address] ELECTROCARDIOGRAM REPORT Name: SHALOM GAR Room: [address] ADM IN [facility].#: [id number] Admission: 10/30/18 Attend Phys: Dani Lyle MD Discharge: Date of : 76 Report #: [id number] THIS REPORT FOR: //name// [facility] ED Test Date: 2018-10-30 Test Time: 04:09:50 Pat Name: SHALOM GAR Department: Room: [facility] Gender: Framing Carpenter: Ilana BOLAÑOS : 1980 Requested By: Kasia Arvizu Order Number: [id number] MD: Marlo Krishnamurthy Measurements Intervals [place] Rate: 109 P: 59 TN: 167 QRS: 27 QRSD: 89 T: 26 QT: 353 QTc: 476 Interpretive Statements Sinus tachycardia Probable left atrial enlargement Probable anteroseptal infarct, old Compared to ECG 10/08/2018 18:32:28 Myocardial infarct finding now present Q waves no longer present Electronically Signed On 10-30-2018 18:06:30 POLISHING MACHINE OPERATOR HELPER by Marlo Krishnamurthy [email or web address] <ELECTRONICALLY SIGNED> By: Marlo Krishnamurthy MD, FACC 10/30/18 1806 0409 0409 Marlo Krishnamurthy MD, [facility] /EPI
--- NOTE | 2018-10-30 18:35 | 2DMMODE ---
[place] [address] 2 D/M-MODE ECHOCARDIOGRAM Name: SHALOM GAR Room: [address] IN [facility]#: [id number] Admission: 10/30/18 Attend Phys: Dani Lyle, Discharge: Date of : 76 Date of Service: 10/30/18 1835 Report #: [id number] THIS REPORT FOR: //name// APPROVED REPORT Study performed: 10/30/2018 15:11:26 EXAM: Limited 2D Echocardiogram Patient Location: In-Patient Room #: [facility] Status: routine HR: 104 bpm BP: 125/89 mmHg Rhythm: NSR Other Information Study Quality: Good Indications Cardiomyopathy 2D Dimensions IVSd: 15.35 (7-11mm) LVDd: 41.85 mm PWd: 12.43 (7-11mm) LVDs: 26.45 (25-40mm) Left Ventricle The left ventricle is normal size. There is normal LV segmental wall motion. Mild concentric left ventricular hypertrophy. The left ventricular systolic function is normal. The left ventricular ejection fraction is within the normal range. LVEF is 60%. Right Ventricle The right ventricle is normal size. The right ventricular systolic function is normal. Atria The left atrium size is normal. The right atrium size is normal. Aortic Valve Mild aortic valve sclerosis. There is no aortic valvular stenosis[place] [address] 2 D/M-MODE ECHOCARDIOGRAM Name: SHALOM GAR Room: [address] IN M.R.#: [id number] Admission: 10/30/18 Attend Phys: Dani Lyle, Discharge: Date of : 76 Date of Service: 10/30/181834 Report #: [id number] The mitral valve is normal in structure. Tricuspid Valve The tricuspid valve is normal in structure. Pulmonic Valve The pulmonary valve is normal in structure. Great Vessels The aortic root is normal in size. IVC is normal in size and collapses >50% with inspiration. Pericardium There is no pericardial effusion. <Conclusion> Mild concentric left ventricular hypertrophy. The left ventricular systolic function is normal. The left ventricular ejection fraction is within the normal range. LVEF is 60%. The right ventricle is normal size. The left atrium size is normal. Mild aortic valve sclerosis. There is no aortic valvular stenosis. The mitral valve is normal in structure. The tricuspid valve is normal in structure. There is no pericardial effusion. There is normal LV segmental wall motion. The left ventricle is normal size. <ELECTRONICALLY SIGNED> By: Joshua Siddiqui MD, FACC 10/30/181834 34 183 Joshua Siddiqui MD, FACC /INF
--- NOTE | 2018-10-30 19:29 | NUR ---
PATIENT PROGRESSING TOWARDS GOALS. PAIN BETTER CONTROLLED WITH PRN PAIN MEDICATIONS. UP AD RODRIGO IN ROOM WITH BATHROOM PRIVILEDGES. GAIT IS STEADY. TREMORS NOTED TO UPPER EXTREMITIES R/T ETOH WITHDRAWAL. PRN ATIVAN GIVEN WITH GOOD RELIEF. VSS. IV ANTIBIOTICS GIVEN PER DEC. TOLERATED DIET WELL WITHOUT NAUSEA/VOMITING. HOURLY ROUNDING CHARTED. CALL LIGHT WITHIN REACH. WILL CONTINUE TO MONITOR.
[2018-10-30 20:00] VITALS: BP 121/95
[2018-10-30 22:06] LABS: GLYCOHEMOGLOBIN (HGB A1C) 4.7 % (4.8-5.6)
[2018-10-31] VITALS (7 sets, daily range): BP systolic 112–139; BP diastolic 62–105
--- NOTE | 2018-10-31 04:59 | NUR ---
PT CARE ASSUMED [id number]. SAT MAINTAINED IN RA. CALL LIGHT WITHIN REACH AND BED IN LOW POSITION. CALLS FOR PAIN MEDICINE FREQUENTLY. ALERT AND ORIENTED X4. SR TO ST RUNNING ON THE TELE MONITOR. HOURLY ROUNDING DONE FOR PT SAFETY.
[2018-10-31 05:18] LABS: HEMATOCRIT 26.4 % (42.0-52.0); HEMOGLOBIN 8.5 gm/dL (14.0-18.0); MCH 27.2 pg (26.0-34.0); MCV 84.9 fL (80.0-100.0); MPV 8.6 fl. (7.2-11.1); RBC 3.11 mil/uL (4.50-6.00); RDW-CV 22.8 % (10.5-14.5); WBC 4.3 thou/uL (4.0-11.0)
[2018-10-31 05:41] LABS: ALBUMIN 2.1 g/dL (3.4-5.0); CALCIUM 7.8 mg/dL (8.5-10.1); CREATININE 0.6 mg/dL (0.6-1.3); MAGNESIUM 1.6 mg/dL (1.8-2.4); POTASSIUM 4.1 mmol/L (3.5-5.1); TOTAL BILIRUBIN 0.4 mg/dL (<0.1-1.0); TOTAL PROTEIN 6.1 g/dL (6.4-8.2)
[2018-10-31 05:45] LABS: TROPONIN-I LEVEL 0.93 ng/mL (<0.06)
[2018-10-31 06:31] LABS: INFLUENZA A ANTIGEN None Detected (None Detect); INFLUENZA B ANTIGEN None Detected (None Detect)
--- NOTE | 2018-10-31 12:24 | CON ---
[address] [address] CONSULTATION Name: SHALOM GAR Room: [address] IN M.R.#: [id number] Admission: 10/30/18 Attend Phys: Dani Lyle MD Discharge: Date of : 76 Report #: [id number] THIS REPORT FOR: //name// CC: Dani Lyle [facility] physician/PCP DATE OF SERVICE: 10/30/2018 INFECTIOUS DISEASE CONSULTATION ATTENDING PHYSICIAN: Dani Lyle M.D. REASON FOR EVALUATION: Suspected consolidating pneumonitis in the setting of HIV. HISTORY OF PRESENT ILLNESS: Does have longstanding issues with chronic pancreatitis, abdominal pain, poor p.o. intake and weight loss as well. Presented with nausea, emesis, diarrhea, also described some degree of dyspnea and some pain associated with the right side of his chest with cough and deep breathing. He is not aware of fevers, has had some mild chills. Evaluation was undertaken including imaging of chest and abdomen, the former showed right upper lobe consolidating infiltrate as well as chronic changes including extensive pancreatic calcifications. Does have diffuse emphysematous changes of his lungs as well, scarring. The abdomen confirmed the pancreatic changes as well as extensive fatty infiltration of liver. His alcohol level was elevated at 285, mildly elevated AST, hypoalbuminemia with albumin of 2.3. Urinalysis was unremarkable. He is moderately responsive. I have started empirically on therapy with vancomycin and Zosyn, given a dose of levofloxacin. Blood cultures in progress. ALLERGIES: LISTED TO MORPHINE, ACETAMINOPHEN, IBUPROFEN, FENTANYL AND CLONIDINE. CURRENT MEDICATIONS: Include vancomycin, lorazepam, oxycodone, Zosyn. He is on Stribild, which he has been continued on, pantoprazole, aspirin, tramadol. PAST MEDICAL HISTORY: As noted above, history of HIV, chronic pancreatitis, hypertension, depression, anxiety, hepatic dysfunction. SOCIAL HISTORY: Ethanol abuse, smokes cigarettes, no illicit drug use. FAMILY HISTORY: Noncontributory. REVIEW OF SYSTEMS: Otherwise unremarkable 10-point review of systems with exception above noted in in the [place] [address] CONSULTATION Name: SHALOM GAR Room: [address] IN [facility]#: [id number] Admission: 10/30/18 Attend Phys: Dani Lyle MD Discharge: Date of : 76 Report #: [id number] PHYSICAL EXAMINATION: GENERAL: Appears chronically ill, undernourished. He is cooperative, alert, in moderate distress. He does appear to be at least mildly encephalopathic, although does recognize me. VITAL SIGNS: Temperature 97.5, pulse 92, respirations 16, blood pressure 128/89. SKIN: Warm, dry, loss of subcutaneous tissue. HEENT: Extraocular muscles intact. Oropharynx, dry mucous membranes. NECK: Supple. LUNGS: Scattered coarse breath sounds. HEART: Regular. Borderline tachycardic. I do not appreciate a murmur. ABDOMEN: Somewhat distended, generally soft. There is some tenderness to percussion. EXTREMITIES: Distal lower extremities without significant edema. GENITOURINARY: Deferred. RECTAL: Deferred. LABORATORY DATA: CT of chest as noted above. Troponin level was elevated at 0.74. Lactic acid 1.9. CBC: White count of 3.7, H and H 9.4 and 29.1, platelets of 148. Electrolytes: Sodium 136, potassium 4.0, chloride 104, bicarbonate is 22, anion gap of 10, BUN and creatinine 4 and 0.6, glucose of 126. AST of 64, ALT of 37, alkaline phosphatase of 205. Albumin of 2.3. Total protein 6.6. Estimated GFR of 182. ASSESSMENT: Acute pneumonitis. The patient with severe underlying lung disease. Also, complicating factors include ethanolism. He is human immunodeficiency virus positive, noted to have a measurable viral load back in August. He has been off his Stribild. We will see how he does clinically responding to the treatment for a typical bacterial etiology. Given the lobar nature, would expect pneumococcus, can entirely exclude opportunistic type infection unless tend to be more diffuse. If he does not respond, one may need to consider additional testing, even a bronchoscopy. We will discuss with pulmonology. At this point, he is probably at risk for withdrawal symptoms, to monitor expectantly. Certainly, infectious complications are a concern in this setting as well as noninfectious complications. <ELECTRONICALLY SIGNED> By: Salvador Chow MD 10/31/18 1224 1528 [id number] Chow MD /nt
--- NOTE | 2018-10-31 17:25 | NUR ---
ASSUMED CARE OF PT THIS AM ASSESSED AND DOCUMENTED. PT ON CARDIAC MONITER TRACING SR/ST. HE HAS C/O ABD PAIN AND REQUESTS PAIN MEDICATION ON A REGULAR AND WELL TIMED BASIS. HE ALSO SLEEPS AFTER REC. EDUCATED PT ON DEMAND INCLUDING PAIN AND SMOKING CESSATION. HE HAS HAD NO S OR SX OF ADNERSE REACTION TO ABT. HOURLY ROUNDING COMPLETE.
[2018-11-01] VITALS: BP 110/81
--- NOTE | 2018-11-01 02:19 | NUR ---
PATIENT RESTING IN BED, NO ACUTE CHANGES. CALL LIGHT WITHIN REACH, HOURLY ROUNDING OBSERVED. PATIENT DOES NOT CURRETLY APPEAR TO BE IN DISTRESS.
[2018-11-01 03:03] LABS: HEMATOCRIT 25.4 % (42.0-52.0); HEMOGLOBIN 8.1 gm/dL (14.0-18.0); MCH 26.7 pg (26.0-34.0); MCHC 31.9 g/dL (28.0-37.0); MCV 83.8 fL (80.0-100.0); MPV 8.5 fl. (7.2-11.1); RBC 3.03 mil/uL (4.50-6.00); RDW-CV 22.7 % (10.5-14.5); WBC 4.2 thou/uL (4.0-11.0)
[2018-11-01 03:19] LABS: CALCIUM 7.7 mg/dL (8.5-10.1); CREATININE 0.8 mg/dL (0.6-1.3); MAGNESIUM 1.8 mg/dL (1.8-2.4)
[2018-11-01 03:20] LABS: TROPONIN-I LEVEL 0.92 ng/mL (<0.06)
[2018-11-01 04:00] VITALS: BP 104/83
--- NOTE | 2018-11-01 06:51 | NUR ---
PATIENT REFUSES TRAMADOL.
[2018-11-01 08:00] VITALS: BP 117/88
--- NOTE | 2018-11-01 09:11 | NUR ---
Nutrition: Pt assessed for low BMI. Usual wt is ~130-135#. Today's wt is 123# as a bed wt. RD questioning accuracy of today's wt. Please reweigh. H/o HIV, ETOHism, PNA. Admitted with abd pain. Tolerating regular diet. +BM. Albumin 2.1, prealb 13.9. RD will order Ensure MAX for added kcals and nutrition. Consider mild risk at this time.
[2018-11-01 11:42] VITALS: BP 112/89
[2018-11-01 16:39] VITALS: BP 110/79
--- NOTE | 2018-11-01 17:06 | NUR ---
PT C/O ABD AND SHOULDER PAIN. PT RATES PAIN 10/10 REGARDLESS OF PAIN MEDS. PT ABLE TO MAKE NEEDS KNOWN, CALL LIGHT IN REACH
[2018-11-01 20:20] VITALS: BP 122/80
[2018-11-02] VITALS: BP 104/64
[2018-11-02 04:00] VITALS: BP 98/71
--- NOTE | 2018-11-02 04:52 | NUR ---
PT CARE ASSUMED AT 1930. SAT MAINTAINED IN RA. ALERT AND ORIENTED X4. CALL LIGHT WITHIN REACH AND BED IN LOW POSITION. CALLS FOR PAIN MEDICINE FREQUENTLY. DENIES SOB. HOURLY ROUNDING FOR PT SAFETY.
[2018-11-02 08:31] VITALS: BP 114/79
[2018-11-02 12:09] VITALS: BP 107/68
--- NOTE | 2018-11-02 15:29 | NUR ---
PT ALERT/DROWSY AND ORIENTED. TELE TRACKING NSR AND ALL VSS ON ROOM AIR. C/O ABDOMINAL AND BACK PAIN- MEDICATED PER EMAR. NO S/S WITHDRAWAL NOTED. PT UP INDEPENDENTLY IN ROOM. EDUCATED ON SAFETY AND PLAN OF CARE. PLEASE SEE ASSESSMENT FOR ADDITIONAL INFORMATION. WILL CONT TO MONITOR
[2018-11-02 16:00] VITALS: BP 97/71
[2018-11-02 20:10] VITALS: BP 121/83
[2018-11-03] VITALS: BP 113/84
[2018-11-03 04:00] VITALS: BP 113/74
--- NOTE | 2018-11-03 04:45 | NUR ---
PT CARE ASSUMED AT 1930. SAT MAINTAINED IN RA. ALERT AND ORIENTED X 4. CALL LIGHT WITHIN REACH AND BED IN LOW POSITION. CALLS FOR PAIN MEDICINE FREQUENTLY. DENIES SOB. HOURLY ROUNDING DONE FOR PT SAFETY.
[2018-11-03 08:00] VITALS: BP 142/96
[2018-11-03 12:00] VITALS: BP 105/73
[2018-11-03 16:00] VITALS: BP 108/88; BP 136/57
[2018-11-03 20:20] VITALS: BP 117/84
[2018-11-04] VITALS: BP 121/88
[2018-11-04 04:00] VITALS: BP 123/94
--- NOTE | 2018-11-04 05:15 | NUR ---
PT CARE ASSUMED AT 1930. SAT MAINTAINED IN RA. ALERT AND ORIENTED X4. CALL LIGHT WITHIN REACH AND BED IN LOW POSITION. CALLS FOR PAIN MEDICINE FREQUENTLY. DENIES SOB. HOURLY ROUNDING DONE FOR PT SAFTEY.
[2018-11-04 08:00] VITALS: BP 126/93
--- NOTE | 2018-11-04 11:32 | NUR ---
Pt continues to plan to return home at [facility]. ID following.
[2018-11-04 12:13] LABS: MPV 8.6 fl. (7.2-11.1); NUCLEATED RBCS 0 /100WBC; PLATELET COUNT* 153 thou/uL (150-400)
[2018-11-04 12:15] LABS: HEMATOCRIT 25.2 % (42.0-52.0); HEMOGLOBIN 7.9 gm/dL (14.0-18.0); MCH 26.8 pg (26.0-34.0); MCHC 31.5 g/dL (28.0-37.0); MCV 85.3 fL (80.0-100.0); RBC 2.95 mil/uL (4.50-6.00); RDW-CV 22.7 % (10.5-14.5); WBC 4.4 thou/uL (4.0-11.0)
[2018-11-04 12:39] LABS: ALBUMIN 1.9 g/dL (3.4-5.0); CALCIUM 7.8 mg/dL (8.5-10.1); CREATININE 0.7 mg/dL (0.6-1.3); POTASSIUM 3.7 mmol/L (3.5-5.1); TOTAL BILIRUBIN 0.2 mg/dL (<0.1-1.0); TOTAL PROTEIN 5.4 g/dL (6.4-8.2)
[2018-11-04 13:26] LABS: ABSOLUTE EOSINOPHILS 0.1 thou/uL (0.0-0.7); ABSOLUTE LYMPHOCYTES 1.1 thou/uL (0.8-5.3); ABSOLUTE MONOCYTES 0.3 thou/uL (0.0-1.2); ABSOLUTE NEUTROPHILS 2.9 thou/uL (1.6-8.1); ANISOCYTOSIS 1+; HYPOCHROMASIA 1+; PLATELET ESTIMATE ADEQUATE
[2018-11-04 13:27] LABS: POIKILOCYTOSIS 1+; POLYCHROMASIA 1+; TARGET CELLS 1+
--- NOTE | 2018-11-04 17:51 | NUR ---
PT ALERT, ORIENTED AND ALL VSS ON ROOM AIR. PT C/O PERSISTANT ABDOMINAL PAIN- MEDICATED PER EMAR. ENCOURAGED AMBULATION AND EDUCATED ON NON PHARM PAIN INTERVENTIONS. EDUCATED ON SAFETY AND PLAN OF CARE. PLEASE SEE ASSESSMENT FOR ADDITIONAL INFORMATION. WILL CONTINUE TO MONITOR
--- NOTE | 2018-11-04 18:54 | NUR ---
PT TRANSFERRED TO UNIT FROM TELE. I AGREE WITH THE MORNING ASSESSMENT. PT IS ALERT AND ORIENTED. PT C/O PAIN AND WANTS PAIN MEDS. REPORT GIVEN TO NIGHT NURSE. FALL RISK PRECAUTIONS IN PLACE. HOURLY ROUNDING COMPELTED. WILL CONTINUE TO MONITOR.
[2018-11-04 18:55] VITALS: BP 118/80
[2018-11-04 19:20] VITALS: BP 120/58
--- NOTE | 2018-11-04 23:46 | NUR ---
PT ASSESSMENT COMPLETE, REFER TO COMPUTER CHARTING FOR FURTHER DETAILS. VSS. PT IS UP AD RODRIGO WITH STEADY GAIT. IV ABT INFUSED ORDERED. PT C/O CONSTANT 9/10 ABDOMINAL PAIN. PRN PAIN MEDICATIONS GIVEN WITH LITTLE RELIEF PER PT. HOURLY ROUNDING FOR SAFETY. CLWR.
[2018-11-05 04:20] VITALS: BP 119/92
--- NOTE | 2018-11-05 06:21 | NUR ---
PT HAS BEEN UP AMBULATING AROUND THE UNIT AND HIS ROOM THIS SHIFT. PT CONTINUES TO C/O 9-10/10 PAIN IN ABDOMEN AND BACK. PT HAS DRANK MULTIPLE CANS OF SODA WITH CRANBERRY JUICE THIS SHIFT WELL. NO OTHER CONCERNS AT THIS TIME. HOURLY ROUNDING FOR SAFETY. CLWR.
[2018-11-05 08:00] VITALS: BP 112/76
--- NOTE | 2018-11-05 19:59 | NUR ---
PT ALERT AND ORIENTED X 4. BACK AND RIGHT SIDE PAIN @ 9/10. REPORTS PO PAIN MEDICATION IS NOT EFFECTIVE. RECEIVED OXYCODONE FOR PAIN RELIEF. RECEIVED LORAZEPAM X 2 DURING DAY FOR ANXIETY. UP INDEPENDENTLY. PT HAS RIGHT JUGULAR TRIPLE LUMEN LINE. HOURLY ROUNDS MAINTAINED. WILL USE CALL LIGHT FOR ASSISTANCE.
[2018-11-05 20:00] VITALS: BP 120/88
--- NOTE | 2018-11-06 05:14 | NUR ---
ASSUMED CARE OF PT AT 1900 PT ALERT AND ORIENTED X4 VS AND ASSESSMENT STABLE. PT HAD PAIN MEDS Q4H AND SLEPT IN BETWEEN. WILL CONTINUE PLAN OF CARE.
[2018-11-06 08:11] VITALS: BP 113/82
--- NOTE | 2018-11-06 12:46 | NUR ---
PHYSICAL THERAPY EVALUATION COMPLETED. PT. IS INDEPENDENT WITH TRANSFERS/GAIT IN ROOM, DEMONSTRATES ABILITY TO MANAGE 2-3 STEPS AT HOME WITH SINGLE HR. DOES C/O RIGHT KNEE PAIN/INSTABILITY ATTRIBUTING IT TO A "ACL TEAR THAT I NEED TO SEE AN ORTHO DOC ABOUT. I FALL ALL THE TIME BECAUSE OF THAT KNEE. I DON'T HAVE A PCP. I NEED A PCP, A ORTHO DOC VISIT AND NEED TO TALK TO SOCIAL WORK ABOUT SOME BENEFITS APPLICATION." PT. HAS NO SKILLED P.T. NEEDS AT THIS TIME AND IS SAFE TO D/C HOME ONCE MEDICALLY STABLE. PT. IS REQUESTING TO SPEAK TO CM REGARDING "BENEFITS APPLICATION". PT. WOULD BENEFIT FROM ASSISTANCE TO ESTABLISH A PCP AND TO SET UP AN ORTHO CONSULT FOR RIGHT KNEE INSTABILITY/PAIN. THANK YOU FOR THIS REFERRAL. THUAN PETERSON DPT.
[2018-11-06 15:49] VITALS: BP 106/72
[2018-11-06] MEDS ORDERED: CARVEDILOL3.125 MG PO (17:16)
[2018-11-06] MEDS ORDERED: LISINOPRIL2.5 MG PO (17:17)
[2018-11-06] MEDS ORDERED: AUGMENTIN 875-1 EACH PO ×2 (17:17→17:43)
--- NOTE | 2018-11-06 17:33 | NUR ---
PT REMAINED ALERT AND ORIENTED. PT C/O PAIN, MEDS GIVEN ORDERED. PT C/O ANXIETY, MEDS GIVEN ORDERED. PT SWITCHED TO ORAL PAIN MEDS. PRESCRIPTION WRITTEN FOR ANTIBIOTIC. ORAL ANTIBIOTIC GIVEN ORDERED TODAY. DR. DELGADO STATES WILL WRITE DISCHARGE ORDERS AND SEND PATIENT HOME WITH CAB VOUCHER. FALL RISK PRECAUTIONS IN PLACE. HOURLY ROUNDING COMPLETED. WILL CONTINUE TO MONITOR. AWAITING DISCGHARGE ORDERS.
[2018-11-06] MEDS ORDERED: OXYCODONE HCL 55 MG PO ×2 (17:43→18:05)
[2018-11-06] MEDS ORDERED: LIDOPATCH1 EACH TOP (17:43)
[2018-11-06] MEDS ORDERED: ASPIR 8181 MG PO (17:43)
[2018-11-06] MEDS ORDERED: TRANSDERM-SCOP1 EACH TRANSDERM (17:43)
[2018-11-06 17:56] VITALS: BP 112/91
[2018-11-06] MEDS ORDERED: LIDOCAINE1 EACH TRANSDERM (18:05)
[2018-11-06] MEDS ORDERED: ASPIRIN81 M2 PO (18:06)
[2018-11-06] MEDS ORDERED: SCOPOLAMINE1 EACH TRANSDERM (18:07)
--- NOTE | 2018-11-06 19:20 | NUR ---
PT GIVEN PRESCRIPTIONS AND CARE NOTES. CENTRAL LINE DISCONTINUED. PT BELONINGS GATHERED. PT DENIED ANY FURTHER QUESTIONS OR CONCERNS. AWAITING PARENT TO PICK THEM UP. FALL RISK PRECAUTIONS IN PLACE. HOURLY ROUNDING COMPLETED. WILL CONTINUE TO MONITOR.
== END 2018-11-06 19:31 | disposition home or self-care (01) | DRG 974 ==
LOC: M.ERS 02:52 → M.TBA-ER 06:30 → M.2W 06:30 → M.ORTHSURG 11-04 18:51
PROVIDERS: Internal Medicine; Personal Emergency Response Attendant; Specialist; ADMIT Internal Medicine
PROC: 02HV33Z Insertion of Infusion Device into Superior Vena Cava, Percutaneous Approach (ICD-10-PCS; principal; 2018-10-30)
DX: B20 Human immunodeficiency virus [HIV] disease (principal); J15.6 Pneumonia due to other Gram-negative bacteria; I21.A1 Myocardial infarction type 2; I42.9 Cardiomyopathy, unspecified; R65.10 Systemic inflammatory response syndrome (SIRS) of non-infectious origin without acute organ dysfunction; K86.1 Other chronic pancreatitis; I10 Essential (primary) hypertension; F32.9 Major depressive disorder, single episode, unspecified; G89.29 Other chronic pain; F41.9 Anxiety disorder, unspecified; J44.9 Chronic obstructive pulmonary disease, unspecified; F10.120 Alcohol abuse with intoxication, uncomplicated; R73.9 Hyperglycemia, unspecified; I95.9 Hypotension, unspecified; F17.210 Nicotine dependence, cigarettes, uncomplicated; D69.6 Thrombocytopenia, unspecified; I25.2 Old myocardial infarction; Z79.82 Long term (current) use of aspirin; Z91.14 Patient's other noncompliance with medication regimen; Z79.899 Other long term (current) drug therapy; Z88.5 Allergy status to narcotic agent; Z88.8 Allergy status to other drugs, medicaments and biological substances

== ENCOUNTER 2018-11-11 23:02 | Emergency (ER) | payer MEDICAID ==
[~2018-11-11] VITALS: Ht 182.9 cm; Wt 59.0 kg
[~2018-11-11 23:02] MED LIST changes: +ASPIR 8181 MG PO; +ASPIRIN81 M2 PO; +AUGMENTIN 875-1 EACH PO; +CARVEDILOL3.125 MG PO; +LIDOCAINE1 EACH TRANSDERM; +LIDOPATCH1 EACH TOP; +LISINOPRIL2.5 MG PO; +SCOPOLAMINE1 EACH TRANSDERM; +TRANSDERM-SCOP1 EACH TRANSDERM
[2018-11-11 23:47] LABS: NUCLEATED RBCS 0 /100WBC; RBC 3.73 mil/uL (4.50-6.00); WBC 3.9 thou/uL (4.0-11.0)
[2018-11-11 23:48] LABS: HEMATOCRIT 31.8 % (42.0-52.0); HEMOGLOBIN 9.9 gm/dL (14.0-18.0); MCH 26.7 pg (26.0-34.0); MCHC 31.3 g/dL (28.0-37.0); MCV 85.1 fL (80.0-100.0); MPV 8.3 fl. (7.2-11.1); PLATELET COUNT* 328 thou/uL (150-400)
[2018-11-11 23:56] LABS: CALCIUM 8.7 mg/dL (8.5-10.1); CREATININE 0.8 mg/dL (0.6-1.3); POTASSIUM 4.2 mmol/L (3.5-5.1)
[2018-11-12 00:07] LABS: ALBUMIN 2.8 g/dL (3.4-5.0); TOTAL BILIRUBIN 0.3 mg/dL (<0.1-1.0); TOTAL PROTEIN 7.8 g/dL (6.4-8.2)
[2018-11-12 00:11] LABS: APTT 26.5 Seconds (25.0-31.3); PROTIME 10.5 Seconds (9.20-11.50)
[2018-11-12] MEDS ORDERED: LEVAQUIN 500 M500 MG PO (01:31)
[2018-11-12] MEDS ORDERED: ZOFRAN ODT4 MG PO (01:31)
[2018-11-12] MEDS ORDERED: OXYCODONE HCL 55 MG PO (01:31)
[2018-11-12 01:53] VITALS: BP 138/96
[2018-11-12 03:36] LABS: ABSOLUTE EOSINOPHILS 0.1 thou/uL (0.0-0.7); ABSOLUTE LYMPHOCYTES 1.5 thou/uL (0.8-5.3); ABSOLUTE MONOCYTES 0.4 thou/uL (0.0-1.2); ABSOLUTE NEUTROPHILS 1.8 thou/uL (1.6-8.1)
[2018-11-12 03:37] LABS: ANISOCYTOSIS 2+; PLATELET ESTIMATE ADEQUATE
[2018-11-12 03:38] LABS: HYPOCHROMASIA 1+
--- NOTE | 2018-11-12 15:00 | EKG ---
[place] [address] ELECTROCARDIOGRAM REPORT Name: SHALOM GAR Ilana Room: [facility]#: [id number] Admission: 11/11/18 Attend Phys: Discharge: 11/12/18 Date of : 76 Report #: [id number] THIS REPORT FOR: //name// [facility] ED Test Date: 2018-11-11 Test Time: 23:57:14 Pat Name: SHALOM GAR Department: Room: Gender: M Wood Calker: Charles THAKKAR : 1980 Requested By: Kasia Bojorquez Order Number: [id number] MD: David Louise Measurements Intervals [place] Rate: 108 P: 70 NM: 155 QRS: 37 QRSD: 83 T: 25 QT: 328 QTc: 440 Interpretive Statements Sinus tachycardia Borderline T wave abnormalities Compared to ECG 10/30/2018 04:09:50 no change Electronically Signed On 11-12-2018 15:00:07 FORESTRY AIDE by David Louise [email or web address] <ELECTRONICALLY SIGNED> By: David Louise MD, [facility] 11/12/18 1500 56 56 David Louise MD, FACC /EPI
== END 2018-11-12 01:53 | disposition home or self-care (01) ==
LOC: M.ERS 23:02
PROVIDERS: Physician Assistant
DX: G89.29 Other chronic pain (principal); R10.33 Periumbilical pain; R11.2 Nausea with vomiting, unspecified; I10 Essential (primary) hypertension; F32.9 Major depressive disorder, single episode, unspecified; F41.9 Anxiety disorder, unspecified; F17.210 Nicotine dependence, cigarettes, uncomplicated; Z88.5 Allergy status to narcotic agent; Z88.6 Allergy status to analgesic agent; Z88.8 Allergy status to other drugs, medicaments and biological substances

== ENCOUNTER 2018-11-22 08:30 | Emergency (ER) | payer MEDICAID ==
[~2018-11-22] VITALS: Ht 182.9 cm; Wt 59.9 kg
[~2018-11-22 08:30] MED LIST changes: +LEVAQUIN 500 M500 MG PO
[2018-11-22 09:42] LABS: BE -1.8 mmol/L (-2 to +3); PCO2 35.5 mmHg (35.0-45.0); PO2 80.6 mmHg (75.0-100.0); pH 7.416 (7.340-7.450)
[2018-11-22 10:23] LABS: ABSOLUTE EOSINOPHILS 0.1 thou/uL (0.0-0.7); ABSOLUTE LYMPHOCYTES 1.4 thou/uL (0.8-5.3); ABSOLUTE MONOCYTES 0.2 thou/uL (0.0-1.2); ABSOLUTE NEUTROPHILS 0.9 thou/uL (1.6-8.1); BASOPHILS 1.7 %; EOSINOPHILS 2.5 %; HEMATOCRIT 31.6 % (42.0-52.0); HEMOGLOBIN 10.2 gm/dL (14.0-18.0); MCH 26.6 pg (26.0-34.0); MCHC 32.3 g/dL (28.0-37.0); MCV 82.2 fL (80.0-100.0); MONOCYTES 7.6 %; MPV 7.1 fl. (7.2-11.1); NUCLEATED RBCS 1 /100WBC; PLATELET COUNT* 247 thou/uL (150-400); POLYS 35.2 %; RBC 3.85 mil/uL (4.50-6.00); WBC 2.7 thou/uL (4.0-11.0)
[2018-11-22 10:29] LABS: CALCIUM 8.5 mg/dL (8.5-10.1); CREATININE 0.8 mg/dL (0.6-1.3); POTASSIUM 3.8 mmol/L (3.5-5.1)
[2018-11-22 10:34] LABS: ALBUMIN 2.9 g/dL (3.4-5.0); TOTAL BILIRUBIN 0.2 mg/dL (<0.1-1.0); TOTAL PROTEIN 7.7 g/dL (6.4-8.2)
[2018-11-22] MEDS ORDERED: ZPAK PO (10:48)
[2018-11-22] MEDS ORDERED: OXYCODONE HCL10 MG PO (10:48)
[2018-11-22 11:02] LABS: AMYLASE 84 U/L (25-115); LIPASE 92 U/L (73-393)
[2018-11-22] MEDS ORDERED: OXYCODONE HCL E15 MG PO (11:43)
[2018-11-22] MEDS ORDERED: LEVAQUIN 750 M750 MG PO (11:43)
[2018-11-22 11:50] VITALS: BP 120/91
== END 2018-11-22 11:50 | disposition home or self-care (01) ==
LOC: M.ERS 08:30
PROVIDERS: Personal Emergency Response Attendant
DX: F10.129 Alcohol abuse with intoxication, unspecified (principal); G89.29 Other chronic pain; F17.210 Nicotine dependence, cigarettes, uncomplicated; I10 Essential (primary) hypertension; F32.9 Major depressive disorder, single episode, unspecified; F41.9 Anxiety disorder, unspecified; I42.9 Cardiomyopathy, unspecified; Z88.5 Allergy status to narcotic agent; Z88.6 Allergy status to analgesic agent; Z88.4 Allergy status to anesthetic agent; Z21 Asymptomatic human immunodeficiency virus [HIV] infection status; Y90.0 Blood alcohol level of less than 20 mg/100 ml

== ENCOUNTER 2018-12-05 03:18 | Inpatient (IN) | payer MEDICAID ==
[~2018-12-05] VITALS: Ht 182.9 cm; Wt 59.0 kg
--- NOTE | ~2018-12-05 | CON ---
[facility] [address] [place] [address] CONSULTATION Name: SHALOM GAR Room: [address] IN M.R.#: [id number] Admission: 12/05/18 Attend Phys: Kasandra Greene Discharge: Date of : 76 Report #: [id number] THIS REPORT FOR: //name// CC: FAM physician/PCP Ashlee Chong DATE OF SERVICE: 12/05/2018 REFERRING PHYSICIAN: Ashlee Armstrong MD. REASON FOR CONSULTATION: Abdominal pain. IMPRESSION: 1. Epigastric pain associated with nausea, vomiting with history of chronic alcohol abuse -- suspect exacerbation of chronic alcoholic pancreatitis. 2. Chronic calcific pancreatitis secondary to chronic alcohol abuse. 3. Cytopenias secondary to chronic alcohol abuse with the patient already undergoing previous evaluation including upper and lower endoscopy back in 08/2018 being unremarkable. 4. Human immunodeficiency virus positivity for which the patient is on medications for the same. 5. Nonischemic cardiomyopathy with low ejection fraction with the need to be on medications for the same. 6. Protein-calorie malnutrition. RECOMMENDATIONS: 1. I discussed with the patient the fact that he needs to discontinue alcohol altogether. I told him this continues to cause problems with his pancreas and will cause continued problem with abdominal pain, nausea, vomiting, weight loss, etc. He also will have issues with chronic diarrhea, steatorrhea and malabsorption. 2. Begin the patient on some pancreatic enzyme to see if this would help his own as a biofeedback inhibition of his pancreas to see if they would help with the same. 3. I reviewed the CT scan, which revealed suggestion of thickened stomach, but for the present time, we will hold off on endoscopic evaluation. This was done just a few months ago and was unrevealing. It is likely related to under distention and not necessarily related to pathologic alteration. 4. We will check the patient's laboratory test to evaluate his anemia and hold off on any endoscopic studies. 5. I am hopeful that he will be out of the hospital in just 2-3 days. 6. We will begin the patient on a diet at this time. HISTORY OF PRESENT ILLNESS: The patient is a 38-year-old white male with history of chronic calcific alcoholic pancreatitis, HIV [place] [address] CONSULTATION Name: SHALOM GAR Room: [address]#: [id number] Admission: 12/05/18 Attend Phys: Kasandra Greene Discharge: Date of : 76 Report #: [id number] abuse, who was admitted to the hospital with complaints of abdominal pain with nausea and vomiting. He continues to drink alcohol despite the fact that he has been told in the past to discontinue the same. He denies dysphagia, odynophagia. He has had no problems with postprandial pain except for recently. He denies any hematemesis, melena, hematochezia. Does have problem with looser stools and it is difficult for him to maintain his weight. He states that when he gets this pain, he will discontinue drinking and will also stop eating as well. He has had multiple bouts of pancreatitis in the past and CT scan revealed evidence for chronic calcifications within the pancreas compatible with the same. He is admitted to the hospital for further evaluation and treatment. ALLERGIES: CLONIDINE, ACETAMINOPHEN, FENTANYL, IBUPROFEN AND MORPHINE. MEDICATIONS: At home are carvedilol, Stribild for his HIV. PAST MEDICAL HISTORY: Significant for chronic alcoholic pancreatitis, HIV positivity, hypertension, depression, chronic alcohol abuse, ischemic cardiomyopathy. He also has history of polysubstance abuse with history of marijuana and history of PCP in the past. He is hepatitis C negative. The patient underwent both upper and lower endoscopy by me back in August of last year, which revealed normal upper endoscopy and colonoscopy revealed hemorrhoidal disease. SOCIAL HISTORY: The patient smokes a pack per day. Drinks alcohol on a regular basis. We will go through withdrawal within 24 hours. He drinks beer on a regular basis. FAMILY HISTORY: Not taken. I have discussed at the present time, the patient had problem with abdominal pain, which likely is due to pancreatitis. He does not necessary have evidence of elevated lipase, he just has the abdominal pain secondary to his chronic calcific pancreas. We will hold off on endoscopic evaluation at this point in time as he cannot tolerate eating. We will follow him at this time. By: [id number] Angel Villagomez DO /nt
[~2018-12-05 03:18] MED LIST changes: +LEVAQUIN 750 M750 MG PO; +OXYCODONE HCL E15 MG PO; +OXYCODONE HCL10 MG PO; +ZPAK PO
[2018-12-05 03:19] VITALS: BP 118/83
[2018-12-05 03:42] LABS: URINE BILIRUBIN NEGATIVE (Negative); URINE BLOOD NEGATIVE (Negative); URINE CLARITY CLEAR; URINE COLOR STRAW; URINE GLUCOSE-RANDOM NEGATIVE (Negative); URINE KETONES NEGATIVE (Negative); URINE LEUKOCYTES-REFLEX NEGATIVE (Negative); URINE NITRITE-REFLEX NEGATIVE (Negative); URINE PROTEIN NEGATIVE (Negative); URINE SPECIFIC GRAVITY <= 1.005 (1.005-1.030); URINE UROBILINOGEN 0.2 E.U./dl (0.2-1.0)
[2018-12-05 03:51] LABS: AMP/METHAMP Negative (Negative); BARBITURATES Negative (Negative); BENZODIAZEPINES Negative (Negative); COCAINE Negative (Negative); METHADONE Negative (Negative); OPIATES Negative (Negative); PCP Negative (Negative); THC Negative (Negative)
[2018-12-05 04:08] LABS: HEMATOCRIT 26.2 % (42.0-52.0); HEMOGLOBIN 8.5 gm/dL (14.0-18.0); MCH 27.1 pg (26.0-34.0); MCHC 32.4 g/dL (28.0-37.0); MCV 83.7 fL (80.0-100.0); MPV 9.2 fl. (7.2-11.1); NUCLEATED RBCS 0 /100WBC; PLATELET COUNT* 86 thou/uL (150-400); RBC 3.13 mil/uL (4.50-6.00); RDW-CV 21.7 % (10.5-14.5); WBC 5.2 thou/uL (4.0-11.0)
[2018-12-05 04:17] LABS: CALCIUM 7.8 mg/dL (8.5-10.1); CREATININE 0.6 mg/dL (0.6-1.3); POTASSIUM 3.5 mmol/L (3.5-5.1)
[2018-12-05 04:20] LABS: ALBUMIN 2.2 g/dL (3.4-5.0); TOTAL BILIRUBIN 0.2 mg/dL (<0.1-1.0); TOTAL PROTEIN 6.1 g/dL (6.4-8.2)
[2018-12-05 04:22] LABS: ACETAMINOPHEN < 2 ug/mL (10-30); ALCOHOL 165 mg/dL (<10); SALICYLATE 4.6 mg/dL (2.8-20.0)
[2018-12-05 05:40] VITALS: BP 118/89
[2018-12-05 05:55] LABS: ABSOLUTE LYMPHOCYTES 1.2 thou/uL (0.8-5.3); ABSOLUTE MONOCYTES 0.3 thou/uL (0.0-1.2); ABSOLUTE NEUTROPHILS 3.7 thou/uL (1.6-8.1); HYPOCHROMASIA 2+; LARGE PLATELETS RARE; PLATELET ESTIMATE DECREASED; TARGET CELLS 1+
[2018-12-05 05:56] LABS: ANISOCYTOSIS 1+; POIKILOCYTOSIS 1+
[2018-12-05 06:30] VITALS: BP 104/80
[2018-12-05 09:39] VITALS: BP 98/61
[2018-12-05 16:00] VITALS: BP 115/85
[2018-12-05] MEDS ORDERED: REMERON15 M2 PO (17:41)
[2018-12-05 20:00] VITALS: BP 123/91
[2018-12-06 04:55] LABS: HEMATOCRIT 26.2 % (42.0-52.0); HEMOGLOBIN 8.1 gm/dL (14.0-18.0); MCH 26.1 pg (26.0-34.0); MCHC 31.1 g/dL (28.0-37.0); MPV 10.2 fl. (7.2-11.1); RBC 3.12 mil/uL (4.50-6.00); RDW-CV 22.2 % (10.5-14.5); WBC 2.7 thou/uL (4.0-11.0)
[2018-12-06 05:14] LABS: PROTIME 10.7 Seconds (9.20-11.50)
[2018-12-06 05:16] LABS: PREALBUMIN 11.9 mg/dL (18.0-35.7)
[2018-12-06 05:37] LABS: ALBUMIN 1.9 g/dL (3.4-5.0); CALCIUM 7.7 mg/dL (8.5-10.1); CREATININE 0.6 mg/dL (0.6-1.3); MAGNESIUM 2.3 mg/dL (1.8-2.4); POTASSIUM 3.9 mmol/L (3.5-5.1); TOTAL BILIRUBIN 0.2 mg/dL (<0.1-1.0); TOTAL PROTEIN 5.5 g/dL (6.4-8.2)
--- NOTE | 2018-12-06 07:16 | CON ---
[address] [address] CONSULTATION Name: SHALOM GAR Room: [address] IN M.R.#: [id number] Admission: 12/05/18 Attend Phys: Kasandra Greene Discharge: Date of : 76 Report #: [id number] THIS REPORT FOR: //name// CC: RUFINA physician/PCP Surendra Chong DATE OF SERVICE: 12/05/2018 INFECTIOUS DISEASE CONSULTATION ATTENDING PHYSICIAN: Dr. Chong. REASON FOR EVALUATION: This gentleman, with HIV infection, is admitted with abdominal related pain, has extensive history of this, has known chronic pancreatitis that was felt to be on the basis of current ethanol use/abuse. Noted he does drink secondary to attempts to relieve the pain, was his birthday and had increased his intake, had associated nausea with emesis in addition to the longstanding pain. It is unclear to him if he had fevers or chills. He did experience "hot and cold sweats" and has had a recent history of pneumonia for which he received antibiotics and he was concerned about the possibility of adverse drug effect. CT pelvis was notable for extensive chronic pancreatic calcifications, diffuse gastric wall thickening, is unchanged; no evidence of bowel obstruction, ileus or free air. Urinalysis was otherwise unremarkable. Most recent chest x-ray from roughly 2 weeks ago showed the resolving right upper lobe pneumonitis. At this point, he is lucid, in moderate distress. ALLERGIES: MORPHINE, ACETAMINOPHEN, IBUPROFEN, FENTANYL AND CLONIDINE. CURRENT MEDICATIONS: Include enoxaparin, nicotine, tramadol, sucralfate, carvedilol, is on a combination antiretroviral, Stribild; p.r.n. analgesics and antiemetics. PAST MEDICAL HISTORY: As noted above, HIV, has history of chronic pancreatitis, hypertension, depression, anxiety, cardiomyopathy. SOCIAL HISTORY: Polysubstance abuse, smokes cigarettes, a pack a day for the last 15 years. FAMILY HISTORY: Noncontributory. REVIEW OF SYSTEMS: Denies significant pulmonary related complaints, otherwise unremarkable 10-point review of systems unless otherwise noted in the above history of present illness. PHYSICAL EXAMINATION: GENERAL: Appears chronically ill, undernourished. [place] [address] CONSULTATION Name: SHALOM GAR Room: [address]#: [id number] Admission: 12/05/18 Attend Phys: Kasandra Greene Discharge: Date of : 76 Report #: [id number] cooperative. He is in moderate distress secondary to the abdominal pain. He is clearly undernourished, bordering on cachexia. VITAL SIGNS: Temperature 98.2, pulse 107, respirations 16, blood pressure 98/61. SKIN: Warm, dry, no rashes. HEENT: Normocephalic. Extraocular muscles intact. NECK: Supple. LUNGS: Generally clear to auscultation. HEART: Irregular. I do not appreciate any murmur, borderline tachycardic. ABDOMEN: There are no peritoneal signs to percussion, soft. GENITOURINARY: Deferred. RECTAL: Deferred. LABORATORY DATA: CT of the pelvis showed improvement in the right lower lobe infiltrate, the extensive chronic pancreatic calcifications, diffuse gastric wall thickening. CBC: White count of 5.2, H and H 8.5 and 26.2 and platelets of 86. Alcohol level is elevated at 165. Electrolytes: Sodium 138, potassium 3.5, chloride 105, bicarbonate is 26, anion gap of 7, BUN and creatinine is 4 and 0.6, glucose of 83. AST of 164, ALT of 59, alkaline phosphatase of 221. Estimated GFR of 181, albumin of 2.2, total protein of 6.1. Drug screen for illicit drugs was otherwise unremarkable. Urinalysis unremarkable. ASSESSMENT AND PLAN: Human immunodeficiency virus infection. We will continue the Stribild for now. Previous CD4 was 396. Viral load was undetectable. He does maintain that he is taking the medicines. He is certainly at risk for opportunistic infections, although there is no evidence at this point, likely go through withdrawal as well. Need to get him back on schedule, consider any prophylaxis at this point, defer to his primary HIV doctor. Thank you, we will follow. <ELECTRONICALLY SIGNED> By: Salvador Chow MD 12/06/18 0716 [id number] [id number] Chow MD /nt
[2018-12-06 08:21] VITALS: BP 115/88
[2018-12-06 16:00] VITALS: BP 106/81
[2018-12-06 20:00] VITALS: BP 112/85
[2018-12-07] VITALS: BP 115/85
[2018-12-07 04:38] LABS: HEMATOCRIT 24.9 % (42.0-52.0); HEMOGLOBIN 7.9 gm/dL (14.0-18.0); MCH 26.5 pg (26.0-34.0); MCHC 31.9 g/dL (28.0-37.0); MCV 83.2 fL (80.0-100.0); MPV 9.6 fl. (7.2-11.1); RBC 2.99 mil/uL (4.50-6.00); RDW-CV 22.2 % (10.5-14.5); WBC 3.1 thou/uL (4.0-11.0)
[2018-12-07 04:58] LABS: CALCIUM 8.1 mg/dL (8.5-10.1); CREATININE 0.7 mg/dL (0.6-1.3); POTASSIUM 3.8 mmol/L (3.5-5.1); TOTAL BILIRUBIN 0.2 mg/dL (<0.1-1.0); TOTAL PROTEIN 5.6 g/dL (6.4-8.2)
[2018-12-07 08:00] VITALS: BP 109/81
[2018-12-07 20:00] VITALS: BP 111/79
[2018-12-08 15:00] VITALS: BP 112/81
[2018-12-08 20:15] VITALS: BP 112/80
[2018-12-09 08:00] VITALS: BP 116/89
[2018-12-09] MEDS ORDERED: CARVEDILOL3.125 MG PO (10:42)
[2018-12-09] MEDS ORDERED: TRAMADOL 50 MG50 MG PO (10:42)
[2018-12-09] MEDS ORDERED: PANCRELIPASE PO ×2 (10:42)
[2018-12-09] MEDS ORDERED: CARAFATE 11 GM/10 M1 PO (10:42)
[2018-12-09] MEDS ORDERED: OXYCODONE HCL 55 MG PO (10:42)
[2018-12-09] MEDS ORDERED: PANTOPRAZOLE SO40 M1 PO (10:44)
[2018-12-09 11:12] VITALS: BP 116/89
== END 2018-12-09 14:15 | disposition home or self-care (01) | DRG 392 ==
LOC: M.ERS 03:18 → M.3W 04:43 → M.TBA-ER 04:43 → M.3W 06:41
PROVIDERS: Emergency Medicine; Internal Medicine; Internal Medicine Gastroenterology; ADMIT Internal Medicine
DX: K29.70 Gastritis, unspecified, without bleeding (principal); I42.9 Cardiomyopathy, unspecified; K86.0 Alcohol-induced chronic pancreatitis; E46 Unspecified protein-calorie malnutrition; B20 Human immunodeficiency virus [HIV] disease; Z68.1 Body mass index [BMI] 19.9 or less, adult; F10.229 Alcohol dependence with intoxication, unspecified; I10 Essential (primary) hypertension; F32.9 Major depressive disorder, single episode, unspecified; F41.9 Anxiety disorder, unspecified; F17.210 Nicotine dependence, cigarettes, uncomplicated; Y90.9 Presence of alcohol in blood, level not specified; K75.9 Inflammatory liver disease, unspecified; D64.9 Anemia, unspecified; Z88.8 Allergy status to other drugs, medicaments and biological substances; Z79.899 Other long term (current) drug therapy; Z87.01 Personal history of pneumonia (recurrent)

== ENCOUNTER 2018-12-18 00:03 | Emergency (ER) | payer MEDICAID ==
[~2018-12-18] VITALS: Ht 182.9 cm; Wt 56.7 kg
[~2018-12-18 00:03] MED LIST changes: +PANTOPRAZOLE SO40 M1 PO; +REMERON15 M2 PO; +TRAMADOL 50 MG50 MG PO
[2018-12-18 00:41] LABS: HEMOGLOBIN 9.9 gm/dL (14.0-18.0); NUCLEATED RBCS 0 /100WBC
[2018-12-18 00:43] LABS: HEMATOCRIT 31.5 % (42.0-52.0); MCH 26.1 pg (26.0-34.0); MCHC 31.5 g/dL (28.0-37.0); MCV 82.8 fL (80.0-100.0); PLATELET COUNT* 201 thou/uL (150-400); RBC 3.81 mil/uL (4.50-6.00); RDW-CV 21.3 % (10.5-14.5); WBC 4.2 thou/uL (4.0-11.0)
[2018-12-18 01:14] LABS: ALBUMIN 2.8 g/dL (3.4-5.0); CALCIUM 8.9 mg/dL (8.5-10.1); CREATININE 0.9 mg/dL (0.6-1.3); POTASSIUM 3.7 mmol/L (3.5-5.1); TOTAL BILIRUBIN 0.1 mg/dL (<0.1-1.0); TOTAL PROTEIN 7.9 g/dL (6.4-8.2)
[2018-12-18] MEDS ORDERED: REGLAN 10 MG TA10 MG PO (01:42)
[2018-12-18] MEDS ORDERED: CARAFATE 1 GM TA1 GM PO (01:42)
[2018-12-18] MEDS ORDERED: OXYCODONE HCL10 MG PO (01:42)
[2018-12-18 01:56] VITALS: BP 118/70
[2018-12-18 02:08] LABS: ABSOLUTE BASOPHILS 0.1 thou/uL (0.0-0.2); ABSOLUTE EOSINOPHILS 0.1 thou/uL (0.0-0.7); ABSOLUTE LYMPHOCYTES 1.4 thou/uL (0.8-5.3); ABSOLUTE MONOCYTES 0.2 thou/uL (0.0-1.2); ABSOLUTE NEUTROPHILS 2.4 thou/uL (1.6-8.1); ANISOCYTOSIS 2+; PLATELET ESTIMATE ADEQUATE; POLYCHROMASIA 1+; TARGET CELLS 1+
[2018-12-18 02:09] LABS: OVALOCYTES Occasional
== END 2018-12-18 01:50 | disposition home or self-care (01) ==
LOC: M.ERS 00:03
PROVIDERS: Emergency Medicine
DX: K86.1 Other chronic pancreatitis (principal); F10.129 Alcohol abuse with intoxication, unspecified; F17.210 Nicotine dependence, cigarettes, uncomplicated; I10 Essential (primary) hypertension; F32.9 Major depressive disorder, single episode, unspecified; F41.9 Anxiety disorder, unspecified; I42.9 Cardiomyopathy, unspecified; Z88.8 Allergy status to other drugs, medicaments and biological substances; Z21 Asymptomatic human immunodeficiency virus [HIV] infection status; Z88.6 Allergy status to analgesic agent; Z88.4 Allergy status to anesthetic agent; Z88.5 Allergy status to narcotic agent; Y90.0 Blood alcohol level of less than 20 mg/100 ml

== ENCOUNTER 2018-12-26 05:33 | Emergency (ER) | payer MEDICAID ==
[~2018-12-26] VITALS: Ht 188 cm; Wt 56.7 kg
[~2018-12-26 05:33] MED LIST changes: +CARAFATE 1 GM TA1 GM PO; +REGLAN 10 MG TA10 MG PO
[2018-12-26 06:19] LABS: HEMOGLOBIN 11.8 gm/dL (14.0-18.0); MCH 26.4 pg (26.0-34.0); MCHC 31.9 g/dL (28.0-37.0); MCV 82.8 fL (80.0-100.0); MPV 7.5 fl. (7.2-11.1); NUCLEATED RBCS 1 /100WBC; PLATELET COUNT* 210 thou/uL (150-400); RBC 4.47 mil/uL (4.50-6.00); RDW-CV 22.8 % (10.5-14.5); WBC 4.6 thou/uL (4.0-11.0)
[2018-12-26 06:36] LABS: ALBUMIN 2.9 g/dL (3.4-5.0); CALCIUM 8.7 mg/dL (8.5-10.1); CREATININE 0.7 mg/dL (0.6-1.3); POTASSIUM 4.3 mmol/L (3.5-5.1); TOTAL BILIRUBIN 0.2 mg/dL (<0.1-1.0); TOTAL PROTEIN 8.1 g/dL (6.4-8.2)
[2018-12-26 06:48] LABS: ABSOLUTE LYMPHOCYTES 2.5 thou/uL (0.8-5.3); ABSOLUTE MONOCYTES 0.1 thou/uL (0.0-1.2); ABSOLUTE NEUTROPHILS 1.9 thou/uL (1.6-8.1); ANISOCYTOSIS 1+; HYPOCHROMASIA 1+; MYELOCYTES 1 %; POIKILOCYTOSIS 1+; TARGET CELLS 1+
[2018-12-26 07:00] VITALS: BP 120/91
== END 2018-12-26 07:02 | disposition home or self-care (01) ==
LOC: M.ERS 05:33
PROVIDERS: Emergency Medicine
DX: K86.1 Other chronic pancreatitis (principal); F10.10 Alcohol abuse, uncomplicated; F17.210 Nicotine dependence, cigarettes, uncomplicated; F32.9 Major depressive disorder, single episode, unspecified; I10 Essential (primary) hypertension; F41.9 Anxiety disorder, unspecified; I42.9 Cardiomyopathy, unspecified; Z88.8 Allergy status to other drugs, medicaments and biological substances; Z88.6 Allergy status to analgesic agent; Z88.4 Allergy status to anesthetic agent; Z88.5 Allergy status to narcotic agent; Z21 Asymptomatic human immunodeficiency virus [HIV] infection status; Y90.0 Blood alcohol level of less than 20 mg/100 ml

== ENCOUNTER 2019-01-08 12:02 | Emergency (ER) | payer MEDICAID ==
[~2019-01-08] VITALS: Ht 182.9 cm; Wt 54.4 kg
[2019-01-08 12:34] LABS: HEMATOCRIT 32.5 % (42.0-52.0); HEMOGLOBIN 10.6 gm/dL (14.0-18.0); MCH 26.3 pg (26.0-34.0); MCHC 32.7 g/dL (28.0-37.0); MCV 80.4 fL (80.0-100.0); MPV 7.5 fl. (7.2-11.1); NUCLEATED RBCS 0 /100WBC; PLATELET COUNT* 197 thou/uL (150-400); RBC 4.05 mil/uL (4.50-6.00); RDW-CV 21.5 % (10.5-14.5); WBC 2.2 thou/uL (4.0-11.0)
[2019-01-08 12:46] LABS: ALBUMIN 2.5 g/dL (3.4-5.0); CALCIUM 8.3 mg/dL (8.5-10.1); CREATININE 0.7 mg/dL (0.6-1.3); POTASSIUM 3.8 mmol/L (3.5-5.1); TOTAL BILIRUBIN 0.2 mg/dL (<0.1-1.0); TOTAL PROTEIN 7.3 g/dL (6.4-8.2)
[2019-01-08 12:55] LABS: URINE BILIRUBIN NEGATIVE (Negative); URINE BLOOD TRACE (Negative); URINE CLARITY CLEAR; URINE COLOR YELLOW; URINE GLUCOSE-RANDOM NEGATIVE (Negative); URINE KETONES NEGATIVE (Negative); URINE LEUKOCYTES-REFLEX NEGATIVE (Negative); URINE NITRITE-REFLEX NEGATIVE (Negative); URINE PROTEIN 1+ (Negative); URINE UROBILINOGEN 0.2 E.U./dl (0.2-1.0)
[2019-01-08 13:01] LABS: AMP/METHAMP Negative (Negative); BARBITURATES Negative (Negative); BENZODIAZEPINES Negative (Negative); COCAINE Negative (Negative); METHADONE Negative (Negative); OPIATES Negative (Negative); PCP Negative (Negative); THC Negative (Negative)
[2019-01-08 13:10] LABS: ABSOLUTE BASOPHILS 0.1 thou/uL (0.0-0.2); ABSOLUTE LYMPHOCYTES 0.9 thou/uL (0.8-5.3); ABSOLUTE MONOCYTES 0.2 thou/uL (0.0-1.2); ATYPICAL LYMPHS 3 %; PLATELET ESTIMATE ADEQUATE
[2019-01-08 15:37] VITALS: BP 130/98
[2019-01-08] MEDS ORDERED: OXYCODONE HCL10 MG PO (15:42)
--- NOTE | 2019-01-09 12:37 | EKG ---
[place] [address] ELECTROCARDIOGRAM REPORT Name: SHALOM GAR Room: [facility]#: [id number] Admission: 01/08/19 Attend Phys: Discharge: 01/08/19 Date of : 76 Report #: [id number] THIS REPORT FOR: //name// [facility] ED Test Date: 2019-01-08 Test Time: 13:11:35 Pat Name: SHALOM GAR Department: Room: Gender: M Produce Sorter: : 1980 Requested By: Kasia Arvizu Order Number: [id number] MD: David Louise Measurements Intervals [place] Rate: 106 P: 68 OK: 152 QRS: 41 QRSD: 96 T: 55 QT: 362 QTc: 481 Interpretive Statements Sinus tachycardia Probable septal infarct, old Compared to ECG 11/11/2018 23:57:14 T-wave abnormality no longer present Electronically Signed On 01-09-2019 12:36:58 CDT by David Louise [email or web address] <ELECTRONICALLY SIGNED> By: David Louise MD, [facility] 01/09/19 1236 1311 10 David Louise MD, FACC /EPI
== END 2019-01-08 15:37 | disposition home or self-care (01) ==
LOC: M.ERS 12:02
PROVIDERS: Personal Emergency Response Attendant
DX: K86.1 Other chronic pancreatitis (principal); F10.10 Alcohol abuse, uncomplicated; G89.29 Other chronic pain; R10.13 Epigastric pain; R11.2 Nausea with vomiting, unspecified; I10 Essential (primary) hypertension; F32.9 Major depressive disorder, single episode, unspecified; F41.9 Anxiety disorder, unspecified; F17.210 Nicotine dependence, cigarettes, uncomplicated; Z88.6 Allergy status to analgesic agent; Z88.5 Allergy status to narcotic agent; Z88.8 Allergy status to other drugs, medicaments and biological substances

== ENCOUNTER 2019-01-22 21:32 | Emergency (ER) | payer MEDICAID ==
[~2019-01-22] VITALS: Ht 182.9 cm; Wt 59.0 kg
[2019-01-22 22:31] VITALS: BP 106/77
== END 2019-01-22 22:31 | disposition left against medical advice (07) ==
LOC: M.ERS 21:32
DX: R10.84 Generalized abdominal pain (principal); M79.10 Myalgia, unspecified site; I10 Essential (primary) hypertension; F32.9 Major depressive disorder, single episode, unspecified; F41.9 Anxiety disorder, unspecified; F17.210 Nicotine dependence, cigarettes, uncomplicated; Z88.5 Allergy status to narcotic agent; Z88.6 Allergy status to analgesic agent; Z88.8 Allergy status to other drugs, medicaments and biological substances

== ENCOUNTER 2019-02-15 05:06 | Emergency (ER) | payer MEDICAID ==
[~2019-02-15] VITALS: Ht 182.9 cm; Wt 59.0 kg
[2019-02-15] MEDS ORDERED: CARVEDILOL12.5 MG PO (05:13)
[2019-02-15] MEDS ORDERED: ZOFRAN ODT4 MG PO (05:13)
[2019-02-15 06:34] VITALS: BP 122/97
[2019-02-15 06:44] LABS: ALBUMIN 2.8 g/dL (3.4-5.0); CALCIUM 8.6 mg/dL (8.5-10.1); CREATININE 0.7 mg/dL (0.6-1.3); POTASSIUM 3.9 mmol/L (3.5-5.1); TOTAL BILIRUBIN 0.2 mg/dL (<0.1-1.0); TOTAL PROTEIN 8.2 g/dL (6.4-8.2)
== END 2019-02-15 06:35 | disposition left against medical advice (07) ==
LOC: M.ERS 05:06
PROVIDERS: Emergency Medicine
DX: F10.129 Alcohol abuse with intoxication, unspecified (principal); G89.29 Other chronic pain; F17.210 Nicotine dependence, cigarettes, uncomplicated; I10 Essential (primary) hypertension; F32.9 Major depressive disorder, single episode, unspecified; F41.9 Anxiety disorder, unspecified; Z88.8 Allergy status to other drugs, medicaments and biological substances; Z88.6 Allergy status to analgesic agent; Z88.4 Allergy status to anesthetic agent; Z88.5 Allergy status to narcotic agent; Z21 Asymptomatic human immunodeficiency virus [HIV] infection status; Y90.0 Blood alcohol level of less than 20 mg/100 ml

== ENCOUNTER 2019-05-14 07:12 | Emergency (ER) | payer MEDICAID ==
[~2019-05-14] VITALS: Ht 182.9 cm; Wt 68.0 kg
[~2019-05-14 07:12] MED LIST changes: +CARVEDILOL12.5 MG PO
[2019-05-14 07:21] VITALS: BP 138/111
[2019-05-14 08:14] LABS: HEMOGLOBIN 12.2 gm/dL (14.0-18.0); RDW-CV 18.2 % (10.5-14.5); WBC 3.5 thou/uL (4.0-11.0)
[2019-05-14 08:16] LABS: HEMATOCRIT 38.1 % (42.0-52.0); MCH 27.9 pg (26.0-34.0); MCHC 32.2 g/dL (28.0-37.0); MCV 86.9 fL (80.0-100.0); NUCLEATED RBCS 0 /100WBC; PLATELET COUNT* 293 thou/uL (150-400); RBC 4.38 mil/uL (4.50-6.00)
[2019-05-14 08:27] LABS: ALBUMIN 3.8 g/dL (3.4-5.0); CALCIUM 9.2 mg/dL (8.5-10.1); CREATININE 0.6 mg/dL (0.6-1.3); TOTAL BILIRUBIN 0.2 mg/dL (<0.1-1.0); TOTAL PROTEIN 9.2 g/dL (6.4-8.2)
[2019-05-14 08:28] LABS: POTASSIUM 5.6 mmol/L (3.5-5.1)
[2019-05-14 08:38] LABS: ALCOHOL 237 mg/dL (<10)
[2019-05-14 08:39] LABS: ACETAMINOPHEN < 2 ug/mL (10-30)
[2019-05-14 08:59] LABS: ABSOLUTE BASOPHILS 0.1 thou/uL (0.0-0.2); ABSOLUTE EOSINOPHILS 0.1 thou/uL (0.0-0.7); ABSOLUTE LYMPHOCYTES 1.8 thou/uL (0.8-5.3); ABSOLUTE MONOCYTES 0.1 thou/uL (0.0-1.2); ABSOLUTE NEUTROPHILS 1.4 thou/uL (1.6-8.1); ANISOCYTOSIS 2+; ATYPICAL LYMPHS 20 %; PLATELET ESTIMATE ADEQUATE; TARGET CELLS 2+
== END 2019-05-14 08:43 | disposition home or self-care (01) ==
LOC: M.ERS 07:12
PROVIDERS: Emergency Medicine
DX: K85.90 Acute pancreatitis without necrosis or infection, unspecified (principal); F10.10 Alcohol abuse, uncomplicated; Y90.7 Blood alcohol level of 200-239 mg/100 ml; I10 Essential (primary) hypertension; F32.9 Major depressive disorder, single episode, unspecified; F41.9 Anxiety disorder, unspecified; F17.210 Nicotine dependence, cigarettes, uncomplicated; Z88.5 Allergy status to narcotic agent; Z88.6 Allergy status to analgesic agent; Z88.8 Allergy status to other drugs, medicaments and biological substances